=== PATIENT | male | born 1970 | race Caucasian/White ===

== ENCOUNTER 2017-10-26 17:49 | Emergency (ER) | payer OTHER, SELFPAY ==
--- NOTE | 2017-10-26 20:48 | ER ---
Nurse's Notes 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 Reports lightheadedness and feels disoriented. Alert and oriented x 3. Transition of care: patient was not received from another setting of care. Onset of symptoms was October 25, 2017. Risk Assessment: Do you want to hurt yourself or someone else? Patient reports no desire to harm self or others. Care prior to arrival: None. 17:53 Method Of Arrival: Ambulatory aj 17:53 Acuity: ALOK 3 aj Triage Assessment: 17:55 General: Appears in no apparent distress. comfortable, Behavior is calm, cooperative, aj appropriate for age. Pain: Complains of pain in chest. Neuro: Level of Consciousness is awake, alert, obeys commands, Oriented to person, place, time, situation, Appropriate for age. Cardiovascular: Reports chest pain, lightheadedness, Capillary refill < 3 seconds in bilateral. Respiratory: Airway is patent Respiratory effort is even, unlabored, Respiratory pattern is regular, symmetrical. GI: Reports diarrhea, nausea. Derm: Skin is intact, is healthy with good turgor, Skin is pink, warm \T\ dry. normal. Historical: - Allergies: 17:55 PENICILLINS; aj - Home Meds: 17:55 None [Active]; aj - PMHx: 17:55 None; aj - PSHx: 17:55 ankle; aj - Immunization history:: Adult Immunizations up to date. - Social history:: Smoking status: Patient/guardian denies using tobacco. - Ebola Screening: : Patient negative for fever greater than or equal to 101.5 degrees Fahrenheit, and additional compatible Ebola Virus Disease symptoms Patient denies exposure to infectious person Patient denies travel to an Ebola-affected area in the 21 days before illness onset No symptoms or risks identified at this time. Vital Signs: 17:55 BP 134 / 84; Pulse 87; Resp 18; Temp 98.1; Pulse Ox 98% on R/A; Weight 97.52 kg; Height aj 6 ft. 4 in. (193.04 cm); 17:55 Body Mass Index 26.17 (97.52 kg, 193.04 cm) aj ED Course: 17:51 Patient arrived in ED. aj 17:54 Triage completed. aj 17:55 Arm band placed on left wrist. Patient placed in an exam room. EKG completed in triage. aj Results shown to MD. 20:18 Patient's name was called from ER lobby. No response. aj 20:31 Patient's name was called from ER lobby. No response. aj 20:46 Patient's name was called from ER lobby. No response. aj 20:48 Castillo Suazo MD is Attending Physician. aj Administered Medications: No medications were administered Outcome: 20:47 Eloped from waiting room, before seeing physician aj 20:48 Patient left the ED. aj Signatures: Raven Vides, RN RN aj
[2017-10-26 21:56] VITALS: BP 134/84; TEMP 98.1; O2SAT 98
--- NOTE | 2017-10-26 22:37 | EKG ---
Test Date: 2017-10-26 Test Time: 17:54:03 Junior Financial Analyst: YAQUELIN MEASUREMENT RESULTS: Intervals: Rate: 85 DE: 140 QRSD: 84 QT: 376 QTc: 447 [place]: P: 62 DE: 140 QRS: 105 T: 51 INTERPRETIVE STATEMENTS: Normal sinus rhythm Rightward axis Borderline ECG Compared to ECG 11/26/2016 12:15:21 No significant changes Electronically Signed On 10-26-17 22:37:39 CDT by Nikhil Solitario
== END 2017-10-26 20:48 | disposition left against medical advice (07) ==
LOC: ER 17:49
DX: Z53.21 Procedure and treatment not carried out due to patient leaving prior to being seen by health care provider (principal)
CPT/HCPCS: 93005; 99281

== ENCOUNTER 2018-06-08 15:58 | Emergency (ER) | payer OTHER ==
[2018-06-08 16:32] LABS: Protime INR 1.12
[2018-06-08 16:48] LABS: ALT/SGPT 30 U/L (12-78); AST/SGOT 11 U/L (15-37); Alkaline Phosphatase 67 U/L (45-117); BUN Blood Urea Nitrogen 19 mg/dL (7-18); Bicarbonate 27 mmol/L (21-32); Bilirubin Direct 0.3 mg/dL (0-0.2); Bilirubin Total 1.8 mg/dL (0.2-1.0); Glucose Level 101 mg/dL (74-106); Magnesium 1.9 mg/dL (1.8-2.4); NT PRO-BNP 20 pg/mL (<125); Potassium 3.8 mmol/L (3.5-5.1); Protein, Total 7.3 g/dL (6.4-8.2); Sodium Level 138 mmol/L (136-145); Troponin (Emerg Dept Use Only) < 0.02 ng/mL (0.0-0.045)
--- NOTE | 2018-06-08 16:59 | RAD REPORT ---
EXAM DESCRIPTION: [place] Single View06/08/2018 4:41 pm CLINICAL HISTORY: Shortness of breath COMPARISON: 2017 FINDINGS: The lungs appear clear of acute infiltrate. The heart is normal size IMPRESSION: No acute abnormalities displayed
--- NOTE | 2018-06-08 18:46 | ER ---
Nurse's Notes [facility] Name: Matthew Lee Age: 47 yrs Sex: Male : 1970 Arrival Date: 06/08/2018 Time: 16:09 Bed 2 Private MD: Diagnosis: Palpitations Presentation: 06/08 16:10 Presenting complaint: Patient states: I was at work, just doing normal activity when I sg felt what i describe as electricity jolt my body then i became weak and short of breath. Presenting complaint: EMS states: pt was in SVT on the 12 lead with a rate of 230's, administered adenosinex2, pt converted to SR with a rate of 100, pt denied any pain or shortness of breath, reported having sinus pain and congestion but denied N/V/D. Transition of care: patient was not received from another setting of care. Onset of symptoms was June 08, 2018. Risk Assessment: Do you want to hurt yourself or someone else? Patient reports no desire to harm self or others. Initial Sepsis Screen: Does the patient meet any 2 criteria? No. Patient's initial sepsis screen is negative. Does the patient have a suspected source of infection? No. Patient's initial sepsis screen is negative. Care prior to arrival: Medication(s) given: Adenosine, 12 mg, x 2, IV initiated. 20 GA, in the right antecubital area, Oxygen administered. via nasal cannula. Care prior to arrival: Medication(s) given: Adenosine. 16:10 Method Of Arrival: EMS: [facility] sg 16:10 Acuity: ALOK 2 sg Historical: - Allergies: 16:40 PENICILLINS; sg - Home Meds: 16:40 None [Active]; sg - PMHx: 16:40 None; sg - PSHx: 16:40 ankle; sg - Immunization history:: Adult Immunizations up to date. - Social history:: Smoking status: Patient/guardian denies using tobacco. - Ebola Screening: : Patient negative for fever greater than or equal to 101.5 degrees Fahrenheit, and additional compatible Ebola Virus Disease symptoms Patient denies exposure to infectious person Patient denies travel to an Ebola-affected area in the 21 days before illness onset No symptoms or risks identified at this time. Screenin:50 Abuse screen: Denies threats or abuse. Denies injuries from another. Nutritional sg screening: No deficits noted. Tuberculosis screening: No symptoms or risk factors identified. Never had TB. Fall Risk None identified. Assessment: 16:40 General: Appears in no apparent distress. comfortable, well groomed, well developed, sg well nourished, Behavior is calm, cooperative, appropriate for age. Neuro: Level of Consciousness is awake, alert, obeys commands, Oriented to person, place, time, situation, Logging Superintendent are equal bilaterally Moves all extremities. Full function Speech is normal, Facial symmetry appears normal, Denies weakness blurred vision dizziness, difficulty swallowing, paresthesias numbness headache photophobia diplopia. Cardiovascular: Heart tones S1 S2 present Patient's skin is warm and dry. Chest pain is denied. Respiratory: Airway is patent Respiratory effort is even, unlabored, Respiratory pattern is regular, symmetrical, Breath sounds are clear. GI: No signs and/or symptoms were reported involving the gastrointestinal system. : No signs and/or symptoms were reported regarding the genitourinary system. EENT: No signs and/or symptoms were reported regarding the EENT system. Derm: Skin is pink, warm \T\ dry. Musculoskeletal: No signs and/or symptoms reported regarding the musculoskeletal system. 17:10 Reassessment: Patient appears in no apparent distress at this time. Patient and/or sg family updated on plan of care and expected duration. Pain level reassessed. Patient is alert, oriented x 3, equal unlabored respirations, skin warm/dry/pink. 18:20 Reassessment: Patient appears in no apparent distress at this time. Patient and/or sg family updated on plan of care and expected duration. Pain level reassessed. Patient is alert, oriented x 3, equal unlabored respirations, skin warm/dry/pink. awaiting update on POC, awaiting re evaluation by ED provider at this time. 19:05 Reassessment: Patient appears in no apparent distress at this time. Patient and/or ed1 family updated on plan of care and expected duration. Pain level reassessed. Patient is alert, oriented x 3, equal unlabored respirations, skin warm/dry/pink. Patient denies pain at this time. 19:22 Reassessment: Patient appears in no apparent distress at this time. Patient and/or ed1 family updated on plan of care and expected duration. Pain level reassessed. Patient is alert, oriented x 3, equal unlabored respirations, skin warm/dry/pink. Patient denies pain at this time. Patient states symptoms have improved. Vital Signs: 16:00 BP 131 / 81; Pulse 96; Resp 18 S; Temp 98.1; Pulse Ox 99% on R/A; sg 16:30 BP 108 / 65; Pulse 88; Resp 17 S; Pulse Ox 96% on R/A; sg 17:00 BP 111 / 69; Pulse 87; Resp 17; Pulse Ox 99% ; sg 18:45 BP 121 / 89; Pulse 76; Resp 17; Temp 98.0; Pulse Ox 100% on R/A; Pain 0/10; sg 19:07 BP 118 / 72; Pulse 69 MON; Resp 19; Pulse Ox 99% on R/A; lp1 19:22 BP 122 / 86; Pulse 68; Resp 16; Temp 97.5(O); Pulse Ox 99% on R/A; Pain 0/10; ed1 19:07 Sinus Rhythm lp1 [place] Coma Score: 17:00 Eye Response: spontaneous(4). Verbal Response: oriented(5). Motor Response: obeys sg commands(6). Total: 15. 18:45 Eye Response: spontaneous(4). Verbal Response: oriented(5). Motor Response: obeys sg commands(6). Total: 15. ED Course: 16:09 Patient arrived in ED. sg 16:14 Triage completed. sg 16:16 EKG done, by mining technician. dt2 16:30 Jones Watt, STIVEN is Primary Nurse. sg 16:34 Lawrence Hernandez MD is Attending Physician. kdr 16:40 Patient has correct armband on for positive identification. Bed in low position. Call sg light in reach. Side rails up X2. desk monitor on. Pulse ox on. NIBP on. Warm blanket given. Verbal reassurance given. Head of bed elevated. 16:42 XRAY Chest (1 view) In Process Unspecified. EDMS 19:05 Maintain EMS IV. Dressing intact. Good blood return noted. Site clean \T\ dry. Gauge \T\ ed 1 site: 18g right a/c. Flushed right antecubital saline lock. 19:08 No provider procedures requiring assistance completed. Patient maintains SpO2 lp1 saturation greater than 95% on room air. 19:08 Arm band placed on. lp1 19:22 IV discontinued, intact, bleeding controlled, No redness/swelling at site. Pressure ed1 dressing applied. Administered Medications: 18:59 Drug: Lopressor 25 mg Route: PO; sg 19:09 Follow up: Response: No adverse reaction; Marked relief of symptoms lp1 Outcome: 18:45 Discharge ordered by . kdr 19:22 Discharged to home ambulatory, with significant other. ed1 19:22 Condition: good 19:22 Discharge instructions given to patient, Instructed on discharge instructions, follow up and referral plans. medication usage, Demonstrated understanding of instructions, follow-up care, medications, Prescriptions given X 1. 19:24 Patient left the ED. ed1 Signatures: Dispatcher [employer] EDMS Jones Watt RN RN Lawrence Hernandez MD MD kdr Riggs, Erika, RN RN ed1 Jamee Gary RN RN lp1 Tamera Urena dt2
--- NOTE | 2018-06-08 18:47 | EDPHYS ---
Physician Documentation [facility] Name: Matthew Lee Age: 47 yrs Sex: Male : 1970 Arrival Date: 06/08/2018 Time: 16:09 Bed 2 Private MD: ED Physician Lawrence Hernandez Historical: - Allergies: 06/08 16:40 PENICILLINS; sg - Home Meds: 16:40 None [Active]; sg - PMHx: 16:40 None; sg - PSHx: 16:40 ankle; sg - Immunization history:: Adult Immunizations up to date. - Social history:: Smoking status: Patient/guardian denies using tobacco. - Ebola Screening: : Patient negative for fever greater than or equal to 101.5 degrees Fahrenheit, and additional compatible Ebola Virus Disease symptoms Patient denies exposure to infectious person Patient denies travel to an Ebola-affected area in the 21 days before illness onset No symptoms or risks identified at this time. Vital Signs: 16:00 BP 131 / 81; Pulse 96; Resp 18 S; Temp 98.1; Pulse Ox 99% on R/A; sg 16:30 BP 108 / 65; Pulse 88; Resp 17 S; Pulse Ox 96% on R/A; sg 17:00 BP 111 / 69; Pulse 87; Resp 17; Pulse Ox 99% ; sg 18:45 BP 121 / 89; Pulse 76; Resp 17; Temp 98.0; Pulse Ox 100% on R/A; Pain 0/10; sg 19:07 BP 118 / 72; Pulse 69 MON; Resp 19; Pulse Ox 99% on R/A; lp1 19:22 BP 122 / 86; Pulse 68; Resp 16; Temp 97.5(O); Pulse Ox 99% on R/A; Pain 0/10; ed1 19:07 Sinus Rhythm lp1 [place] Coma Score: 17:00 Eye Response: spontaneous(4). Verbal Response: oriented(5). Motor Response: obeys sg commands(6). Total: 15. 18:45 Eye Response: spontaneous(4). Verbal Response: oriented(5). Motor Response: obeys sg commands(6). Total: 15. MDM: 18:45 Patient medically screened. kdr 06/08 16:10 Order name: Basic Metabolic Panel; Complete Time: 18:33 sg 06/08 16:10 Order name: CBC with Diff 06/08 16:10 Order name: LFT's; Complete Time: 18:33 06/08 16:10 Order name: Magnesium; Complete Time: 18:33 06/08 16:10 Order name: NT PRO-BNP; Complete Time: 18:33 06/08 16:10 Order name: PT-INR; Complete Time: 18:33 06/08 16:10 Order name: Troponin (emerg Dept Use Only); Complete Time: 18:33 06/08 16:10 Order name: XRAY Chest (1 view); Complete Time: 18:33 06/08 16:10 Order name: EKG; Complete Time: 16:11 06/08 16:10 Order name: Cardiac monitoring; Complete Time: 18:33 06/08 16:10 Order name: EKG - Nurse/Tech; Complete Time: 18:33 06/08 16:10 Order name: IV Saline Lock; Complete Time: 18:33 06/08 16:10 Order name: Labs collected and sent; Complete Time: 18:34 06/08 16:10 Order name: O2 Per Protocol; Complete Time: 18:34 06/08 16:10 Order name: O2 Sat Monitoring; Complete Time: 18:34 Administered Medications: 18:59 Drug: Lopressor 25 mg Route: PO; sg 19:09 Follow up: Response: No adverse reaction; Marked relief of symptoms lp1 Disposition: 06/08/18 18:45 Discharged to Home. Impression: Palpitations. - Condition is Stable. - Discharge Instructions: Palpitations, [id number]. - Medication Reconciliation Form, Thank You Letter form. - Follow up: Private Physician; When: 2 - 3 days; Reason: If symptoms return, Further diagnostic work-up, Recheck today's complaints, Continuance of care, Re-evaluation by your physician. - Problem is an acute exacerbation. - Symptoms have improved. Signatures: Dispatcher [employer] EDMS Jones Watt, RN RN Lawrence Hernandez MD MD [facility] Meera Boston RN RN ed1 Jamee Gary RN lp1 Corrections: (The following items were deleted from the chart) 19:24 18:45 06/08/2018 18:45 Discharged to Home. Impression: Palpitations. Condition is ed1 Stable. Forms are Medication Reconciliation Form, Thank You Letter, Antibiotic Education, Prescription Opioid Use. Follow up: Private Physician; When: 2 - 3 days; Reason: If symptoms return, Further diagnostic work-up, Recheck today's complaints, Continuance of care, Re-evaluation by your physician. Problem is an acute exacerbation. Symptoms have improved. kdr
[2018-06-08] MEDS ORDERED: METOPROLOL TAR 25 MG TAB ONE (19:03)
[2018-06-08 19:51] VITALS: O2SAT 99
[2018-06-08 19:52] VITALS: BP 122/86; TEMP 97.5
--- NOTE | 2018-06-09 14:03 | EKG ---
Test Date: 2018-06-08 Test Time: 16:07:50 Tumbler Machine Operator Helper: MARGARET MEASUREMENT RESULTS: Intervals: Rate: 89 TN: 154 QRSD: 82 QT: 362 QTc: 440 [place]: P: 66 TN: 154 QRS: 105 T: 61 INTERPRETIVE STATEMENTS: Normal sinus rhythm Rightward axis Borderline ECG Compared to ECG 10/26/2017 17:54:03 No significant changes Electronically Signed On 06-09-18 13:59:04 FRENCH LECTURER by Naman Faustin
== END 2018-06-08 19:24 | disposition home or self-care (01) ==
LOC: ER 15:58
DX: R06.02 Shortness of breath (principal); R00.2 Palpitations; Z88.0 Allergy status to penicillin
CPT/HCPCS: 36415; 71045; 80048; 80076; 83735; 83880; 84484; 85025; 85610; 93005

== ENCOUNTER 2019-03-06 11:44 | Emergency (ER) | payer OTHER ==
--- NOTE | 2019-03-06 12:10 | EKG ---
Test Date: 2019-03-06 Test Time: 11:49:32 Manager Corporate Strategy: EPI MEASUREMENT RESULTS: Intervals: Rate: 92 TX: 148 QRSD: 84 QT: 344 QTc: 425 [place]: P: 69 TX: 148 QRS: 112 T: 58 INTERPRETIVE STATEMENTS: Normal sinus rhythm Right axis deviation Abnormal ECG Compared to ECG 06/08/2018 16:07:50 No significant changes Electronically Signed On 03-06-19 12:09:56 CDT by Naman Faustin
[2019-03-06 12:23] LABS: Absolute Lymphocytes (CBC) 1.1 K/uL (0.7-4.9); Basophils % 0.4 % (0-1.3); Hematocrit 45.2 % (39.6-49.0); MPV 7.4 fL (7.6-11.3); RBC Red Blood Cell Count 5.39 M/uL (4.33-5.43)
--- NOTE | 2019-03-06 12:32 | RAD REPORT ---
EXAM DESCRIPTION: RAD - Chest Single View - 03/06/2019 12:25 pm CLINICAL HISTORY: PALPITATIONS Chest pain. COMPARISON: Chest Single View dated 06/08/2018; Chest Single View dated 11/26/2016; CHEST SINGLE VIEW d ated 05/17/2015; CHEST SINGLE VIEW dated 06/21/2012 FINDINGS: Portable technique limits examination quality. The lungs are grossly clear. The heart is normal in size. No displaced fractures. IMPRESSION: No acute intrathoracic process suspected.
[2019-03-06] MEDS ORDERED: NA CHLORIDE 0.9% 1,000 ML ONE (12:34)
[2019-03-06 12:45] LABS: ALT/SGPT 36 U/L (12-78); AST/SGOT 14 U/L (15-37); Albumin 3.9 g/dL (3.4-5.0); Alkaline Phosphatase 73 U/L (45-117); BUN Blood Urea Nitrogen 17 mg/dL (7-18); Bicarbonate 27 mmol/L (21-32); Bilirubin Direct 0.3 mg/dL (0-0.2); Glucose Level 121 mg/dL (74-106); Magnesium 2.1 mg/dL (1.8-2.4); NT PRO-BNP 37 pg/mL (<125); Potassium 3.9 mmol/L (3.5-5.1); Protein, Total 7.4 g/dL (6.4-8.2); Sodium Level 138 mmol/L (136-145); Troponin (Emerg Dept Use Only) < 0.02 ng/mL (0.0-0.045)
--- NOTE | 2019-03-06 14:03 | EDPHYS ---
Physician Documentation [facility] Name: Matthew Lee Age: 48 yrs Sex: Male : 1970 Arrival Date: 03/06/2019 Time: 11:46 Bed 24 Private MD: ED Physician Jas Barajas HPI: 03/06 12:25 This 48 yrs old Male presents to ER via Ambulatory with complaints of jmm Irregular Pulse. 12:25 The patient presents with a history of heart racing. Onset: The symptoms/episode jmm began/occurred acutely, just prior to arrival. Duration: The patient or guardian reports a single episode. Modifying factors: The symptoms are aggravated by nothing. The symptoms are alleviated by Valsalva maneuver, of. Associated signs and symptoms: Pertinent negatives: chest pain. This is a 48 year old male with a history of SVT that presents to the ED with complaints of pain to his left bicep beginning just prior to arrival. Patient states he then developed palpitations. Patient states his pulse was in the 150's using a phone misha. Patient then performed vagal maneuvers. Patient states he currently at baseline but at the time of the event felt very weak. . Historical: - Allergies: 11:52 PENICILLINS; tw2 11:52 Codeine; tw2 - Home Meds: 11:52 None [Active]; tw2 - PMHx: 11:52 SVT; tw2 - PSHx: 11:52 ankle, left; tw2 - Immunization history:: Adult Immunizations. - Social history:: Smoking status: . - Ebola Screening: : Patient denies travel to an Ebola-affected area in the 21 days before illness onset. ROS: 12:25 Constitutional: Negative for fever, chills, and weight loss, Eyes: Negative for injury, jmm pain, redness, and discharge, ENT: Negative for injury, pain, and discharge, Neck: Negative for injury, pain, and swelling. 12:25 Cardiovascular: Positive for palpitations. 12:25 Neuro: Positive for near syncope. 12:25 All other systems are negative. Exam: 12:25 Constitutional: This is a well developed, well nourished patient who is awake, alert, jmm and in no acute distress. Head/Face: atraumatic. Eyes: EOMI, no conjunctival erythema appreciated ENT: Moist Mucus Membranes Neck: Trachea midline, Supple Chest/axilla: Normal chest wall appearance and motion. 12:25 Cardiovascular: Rate: normal, Rhythm: regular, Pulses: no pulse deficits are appreciated. 12:25 Respiratory: the patient does not display signs of respiratory distress, Respirations: normal, Breath sounds: are clear throughout. 12:25 Abdomen/GI: Inspection: abdomen appears normal, Bowel sounds: normal, Palpation: abdomen is soft and non-tender, in all quadrants. 12:25 Back: ROM is normal. 12:25 Musculoskeletal/extremity: ROM: intact in all extremities. 12:25 Skin: Appearance: Color: normal in color. 12:25 Neuro: Orientation: is normal, Mentation: is normal, Memory: is normal. 12:25 Psych: Behavior/mood is pleasant, cooperative. Vital Signs: 11:50 BP 132 / 90; Pulse 88; Resp 18; Temp 98.2(O); Pulse Ox 95% on R/A; Weight 92.99 kg (R); tw2 Height 6 ft. 4 in. (193.04 cm); Pain 5/10; 12:05 BP 127 / 73 LA Sitting (auto/reg); Pulse 85; Resp 13; Pulse Ox 96% on R/A; Pain 0/10; jp3 13:06 BP 112 / 69; Pulse 93; Resp 14 S; Pulse Ox 100% on R/A; ca1 13:41 BP 109 / 61; Pulse 68; Resp 17 S; Pulse Ox 99% on R/A; ca1 14:12 BP 114 / 68; Pulse 80; Resp 17; Pulse Ox 98% on R/A; ca1 11:50 Body Mass Index 24.95 (92.99 kg, 193.04 cm) tw2 MDM: 11:58 Patient medically screened. lyndon 14:00 Data reviewed: vital signs, nurses notes. Counseling: I had a detailed discussion with markos the patient and/or guardian regarding: the historical points, exam findings, and any diagnostic results supporting the discharge/admit diagnosis, lab results, radiology results, the need for outpatient follow up, to return to the emergency department if symptoms worsen or persist or if there are any questions or concerns that arise at home. ED course: Patient is alert and non toxic in appearance. Symptoms have resolved in the ED. Patient is advised to follow up with his is analyst and otherwise given strict return precautions. Patient understood and agrees with the plan of care. . 03/06 11:55 Order name: Basic Metabolic Panel; Complete Time: 13:23 [facility] 03/06 11:55 Order name: CBC with Diff; Complete Time: 12:28 [facility] 03/06 11:55 Order name: LFT's; Complete Time: 13:23 [facility] 03/06 11:55 Order name: Magnesium; Complete Time: 13:23 [facility] 03/06 11:55 Order name: NT PRO-BNP; Complete Time: 13:23 [facility] 03/06 11:55 Order name: PT-INR; Complete Time: 12:41 [facility] 03/06 11:55 Order name: Troponin (emerg Dept Use Only); Complete Time: 13:23 [facility] 03/06 11:55 Order name: XRAY Chest (1 view); Complete Time: 12:35 [facility] 03/06 11:55 Order name: EKG; Complete Time: 11:56 [facility] 03/06 11:55 Order name: Cardiac monitoring; Complete Time: 12:07 [facility] 03/06 11:55 Order name: EKG - Nurse/Tech; Complete Time: 12:07 [facility] 03/06 11:55 Order name: IV Saline Lock; Complete Time: 12:12 [facility] 03/06 11:55 Order name: Labs collected and sent; Complete Time: 12:12 [facility] 03/06 11:55 Order name: O2 Per Protocol; Complete Time: 12:07 [facility] 03/06 11:55 Order name: O2 Sat Monitoring; Complete Time: 12:07 [facility] Administered Medications: 12:36 Drug: NS 0.9% 1000 ml Route: IV; Rate: 1 bolus; Site: right antecubital; ca1 13:40 Follow up: Urine output 110 ml; Response: No adverse reaction; IV Status: Completed ca1 infusion; IV Intake: 1000ml Disposition: 19:59 Co-signature as Attending Physician, Jas Barajas MD I agree with the assessment and tw4 plan of care. Disposition: 03/06/19 14:02 Discharged to Home. Impression: Palpitations. - Condition is Stable. - Discharge Instructions: Palpitations. - Medication Reconciliation Form, Thank You Letter, Antibiotic Education, Prescription Opioid Use, Work release form form. - Follow up: Private Physician; When: 1 - 2 days; Reason: Recheck today's complaints, Continuance of care, Re-evaluation by your physician. Signatures: Dispatcher [employer] EDElver Odom MD MD cha Mickail, Joel, PA PA jmm Wise, Tara, RN RN tw2 Jas Barajas MD MD tw4 Amanda Del Rosario RN RN ca1 Corrections: (The following items were deleted from the chart) 14:15 14:02 03/06/2019 14:02 Discharged to Home. Impression: Palpitations. Condition is ca1 Stable. Forms are Medication Reconciliation Form, Thank You Letter, Antibiotic Education, Prescription Opioid Use. Follow up: Private Physician; When: 1 - 2 days; Reason: Recheck today's complaints, Continuance of care, Re-evaluation by your physician. markos
--- NOTE | 2019-03-06 14:03 | ER ---
Nurse's Notes [facility] Name: Matthew Lee Age: 48 yrs Sex: Male : 1970 Arrival Date: 03/06/2019 Time: 11:46 Bed 24 Private MD: Diagnosis: Palpitations Presentation: 03/06 11:48 Presenting complaint: Patient states: about an hour ago, i had an episode of this sharp tw2 pain in my LEFT arm and got lightheaded and felt my heart rate increase, i was recently diagnosed in Jun with SVT. Transition of care: patient was not received from another setting of care. Onset of symptoms was March 06, 2019. Risk Assessment: Do you want to hurt yourself or someone else? Patient reports no desire to harm self or others. Initial Sepsis Screen: Does the patient meet any 2 criteria? No. Patient's initial sepsis screen is negative. Does the patient have a suspected source of infection? No. Patient's initial sepsis screen is negative. Care prior to arrival: None. 11:48 Method Of Arrival: Ambulatory tw2 11:48 Acuity: ALOK 3 tw2 Triage Assessment: 11:50 General: Appears in no apparent distress. Behavior is anxious. Pain: Complains of pain tw2 in left arm. Cardiovascular: Reports palpitations, Denies chest pain, shortness of breath. Historical: - Allergies: 11:52 PENICILLINS; tw2 11:52 Codeine; tw2 - Home Meds: 11:52 None [Active]; tw2 - PMHx: 11:52 SVT; tw2 - PSHx: 11:52 ankle, left; tw2 - Immunization history:: Adult Immunizations. - Social history:: Smoking status: . - Ebola Screening: : Patient denies travel to an Ebola-affected area in the 21 days before illness onset. Screenin:14 Abuse screen: Denies threats or abuse. Denies injuries from another. Nutritional ca1 screening: No deficits noted. Tuberculosis screening: No symptoms or risk factors identified. Fall Risk IV access (20 points). Assessment: 12:14 General: Appears in no apparent distress. comfortable, Behavior is calm, cooperative, ca1 appropriate for age. Pain: Complains of pain in left arm Pain does not radiate. Pain currently is 0 out of 10 on a pain scale. at worst was 6 out of 10 on a pain scale. Quality of pain is described as crampy, Pain began 1 hour ago. Is episodic. Neuro: Level of Consciousness is awake, alert, obeys commands, Oriented to person, place, time, situation. Cardiovascular: Reports lightheadedness, since an hour ago during the left arm pain episode but has now been resolved Heart tones S1 S2 present Capillary refill < 3 seconds Patient's skin is warm and dry. Pulses are all present. Rhythm is sinus rhythm. Respiratory: Airway is patent Respiratory effort is even, unlabored, Respiratory pattern is regular, symmetrical, Breath sounds are clear bilaterally. GI: Abdomen is flat, non-distended, Bowel sounds present X 4 quads. Abd is soft and non tender X 4 quads. Patient currently denies nausea, vomiting. : No deficits noted. No signs and/or symptoms were reported regarding the genitourinary system. EENT: No deficits noted. No signs and/or symptoms were reported regarding the EENT system. Derm: Skin is intact, is healthy with good turgor, Skin is pink, warm \T\ dry. Musculoskeletal: Circulation, motion, and sensation intact. Capillary refill < 3 seconds, Range of motion: intact in all extremities. 13:06 Reassessment: Patient appears in no apparent distress at this time. Patient and/or ca1 family updated on plan of care and expected duration. Pain level reassessed. Patient is alert, oriented x 3, equal unlabored respirations, skin warm/dry/pink. 13:41 Reassessment: Patient appears in no apparent distress at this time. Patient is alert, ca1 oriented x 3, equal unlabored respirations, skin warm/dry/pink. 14:12 Reassessment: Patient appears in no apparent distress at this time. Patient is alert, ca1 oriented x 3, equal unlabored respirations, skin warm/dry/pink. Vital Signs: 11:50 BP 132 / 90; Pulse 88; Resp 18; Temp 98.2(O); Pulse Ox 95% on R/A; Weight 92.99 kg (R); tw2 Height 6 ft. 4 in. (193.04 cm); Pain 5/10; 12:05 BP 127 / 73 LA Sitting (auto/reg); Pulse 85; Resp 13; Pulse Ox 96% on R/A; Pain 0/10; jp3 13:06 BP 112 / 69; Pulse 93; Resp 14 S; Pulse Ox 100% on R/A; ca1 13:41 BP 109 / 61; Pulse 68; Resp 17 S; Pulse Ox 99% on R/A; ca1 14:12 BP 114 / 68; Pulse 80; Resp 17; Pulse Ox 98% on R/A; ca1 11:50 Body Mass Index 24.95 (92.99 kg, 193.04 cm) tw2 ED Course: 11:46 Patient arrived in ED. as 11:50 Triage completed. tw2 11:50 Arm band placed on. EKG completed in triage. Results shown to MD. tw2 11:50 EKG done, by ecological technical officer. reviewed by Kedar WALKER. jp3 11:52 Amanda Del Rosario, RN is Primary Nurse. ca1 11:54 Kedar Riggs PA is PHCP. jmm 11:55 Elver Lainez MD is Attending Physician. jmm 12:03 Patient maintains SpO2 saturation greater than 95% on room air. jp3 12:04 Bed in low position. Call light in reach. Side rails up X 1. Verbal reassurance given. jp3 conveyor monitor on. Pulse ox on. NIBP on. 12:07 XRAY Chest (1 view) Sent. jp3 12:13 No provider procedures requiring assistance completed. Initial lab(s) drawn, by me, ca1 sent to lab. Inserted saline lock: 20 gauge in right antecubital area, using aseptic technique. Blood collected. 12:26 XRAY Chest (1 view) In Process Unspecified. EDMS 13:42 Jas Barajas MD is Attending Physician. jmm 14:13 IV discontinued, intact, bleeding controlled, No redness/swelling at site. Pressure ca1 dressing applied. Administered Medications: 12:36 Drug: NS 0.9% 1000 ml Route: IV; Rate: 1 bolus; Site: right antecubital; ca1 13:40 Follow up: Urine output 110 ml; Response: No adverse reaction; IV Status: Completed ca1 infusion; IV Intake: 1000ml Intake: 13:40 IV: 1000ml; Total: 1000ml. ca1 Output: 13:40 Urine: 110ml; Total: 110ml. ca1 Outcome: 14:02 Discharge ordered by . jmm 14:13 Discharged to home ambulatory. ca1 14:13 Condition: stable 14:13 Discharge instructions given to patient, Instructed on discharge instructions, follow up and referral plans. Demonstrated understanding of instructions, follow-up care. 14:15 Patient left the ED. ca1 Signatures: Dispatcher [employer] EDKedar Guzman PA PA jmm Martinez, Amelia as Wise, Tara, RN RN tw2 Evan Deluca jp3 Amanda Del Rosario, RN RN ca1
[2019-03-06 14:55] VITALS: TEMP 98.2
[2019-03-06 15:00] VITALS: BP 114/68; O2SAT 98
== END 2019-03-06 14:15 | disposition home or self-care (01) ==
LOC: ER 11:44
DX: R00.2 Palpitations (principal); R55 Syncope and collapse; Z88.0 Allergy status to penicillin; Z88.5 Allergy status to narcotic agent
CPT/HCPCS: 93005; 85025; 80048; 36415; 83735; 85610; 80076; 84484; 83880; 71045; 96360; 99285; J7030

== ENCOUNTER 2019-08-26 13:13 | Emergency (ER) | payer OTHER ==
[2019-08-26 14:06] LABS: Absolute Lymphocytes (CBC) 1.1 K/uL (0.7-4.9); Basophils % 0.9 % (0-1.3); Hematocrit 48.7 % (39.6-49.0); Lymphocytes % 19.3 % (15.3-44.8); MPV 7.8 fL (7.6-11.3); RBC Red Blood Cell Count 5.83 M/uL (4.33-5.43)
[2019-08-26 14:19] LABS: BUN Blood Urea Nitrogen 16 mg/dL (7-18); Bicarbonate 29 mmol/L (21-32); Glucose Level 113 mg/dL (74-106); Magnesium 2.2 mg/dL (1.8-2.4); NT PRO-BNP 25 pg/mL (<125); Potassium 3.8 mmol/L (3.5-5.1); Sodium Level 138 mmol/L (136-145); Troponin (Emerg Dept Use Only) < 0.02 ng/mL (0.0-0.045)
--- NOTE | 2019-08-26 15:28 | EDPHYS ---
Physician Documentation [facility] Name: Matthew Lee Age: 48 yrs Sex: Male : 1970 Arrival Date: 08/26/2019 Time: 13:16 Bed 2 Private MD: Young Martinez T ED Physician Castillo Suazo HPI: 08/25 14:26 This 48 yrs old Male presents to ER via Wheelchair with complaints of rn Irregular Pulse. 14:26 The patient presents with a history of irregular heart beat, heart racing. Onset: The rn symptoms/episode began/occurred last night. Duration: The patient or guardian reports multiple episodes, approximately 2 episodes since symptom onset. Modifying factors: The symptoms are aggravated by nothing. The symptoms are alleviated by nothing. Severity of symptoms: At their worst the symptoms were moderate in the emergency department the symptoms have improved. The patient has experienced similar episodes in the past. Reports hx of svt, began again last night with elevated HR, 150s/160s, got better but couldn't get under 100, no chest pain/sob/syncope. Happened again this AM and resolved once again. Taken of metoprolol a while back because had not had an episode in months and didn't tolerate metoprolol well. Currently feels better but told to come get checked out. . Historical: - Allergies: 13:33 Codeine; iw 13:33 PENICILLINS; iw - Home Meds: 13:33 Dicyclomine Oral [Active]; iw - PMHx: 13:33 SVT; IBS; iw - PSHx: 13:33 left ankle; iw - Immunization history:: Adult Immunizations not up to date. - Social history:: Smoking status: Patient/guardian denies using tobacco, the patient reports quitting approximately 5 years ago. - Family history:: not pertinent. - Hospitalizations: : No recent hospitalization is reported. ROS: 14:26 Constitutional: Negative for fever, chills, and weight loss, Eyes: Negative for injury, rn pain, redness, and discharge, Neck: Negative for injury, pain, and swelling, Cardiovascular: Negative for chest pain, and edema, Respiratory: Negative for shortness of breath, cough, wheezing, and pleuritic chest pain, Abdomen/GI: Negative for abdominal pain, nausea, vomiting, diarrhea, and constipation, MS/Extremity: Negative for injury and deformity, Skin: Negative for injury, rash, and discoloration, Neuro: Negative for headache, weakness, numbness, tingling, and seizure. Exam: 14:26 Constitutional: This is a well developed, well nourished patient who is awake, alert, rn and in no acute distress. Ambulatory to room without distress or assistance. Head/Face: Normocephalic, atraumatic. Cardiovascular: Regular rate and rhythm. No pulse deficits. Respiratory: No increased work of breathing, no retractions or nasal flaring. Abdomen/GI: soft, non-tender Skin: Warm, dry MS/ Extremity: Pulses equal, no cyanosis. Neurovascular intact. Full, normal range of motion. Equal circumference. Neuro: Awake and alert, GCS 15, oriented to person, place, time, and situation. Cranial nerves II-XII grossly intact. Motor strength 5/5 in all extremities. Sensory grossly intact. Cerebellar exam normal. Normal gait. 14:49 ECG was reviewed by the Attending Physician. rn Vital Signs: 13:28 BP 131 / 87; Pulse 92; Resp 16; Pulse Ox 98% on R/A; Weight 97.52 kg; Height 6 ft. 4 iw in. (193.04 cm); Pain 0/10; 13:54 BP 121 / 87; Pulse 80; Resp 16 S; Pulse Ox 96% on R/A; Pain 0/10; jl7 15:11 BP 105 / 72; Pulse 78; Resp 15 S; Pulse Ox 96% on R/A; jl7 13:28 Body Mass Index 26.17 (97.52 kg, 193.04 cm) iw MDM: 13:20 Patient medically screened. rn 14:51 Differential diagnosis: arrythmia, dehydration, stress disorder. Data reviewed: vital rn signs, nurses notes, lab test result(s), EKG, radiologic studies, plain films, and as a result, I will discharge patient. Test interpretation: by ED physician or midlevel provider: ECG, plain radiologic studies, CXR neg for acute infiltrate. Counseling: I had a detailed discussion with the patient and/or guardian regarding: the historical points, exam findings, and any diagnostic results supporting the discharge/admit diagnosis, lab results, radiology results, the need for outpatient follow up, to return to the emergency department if symptoms worsen or persist or if there are any questions or concerns that arise at home. Response to treatment: the patient's condition has returned to base line, the patient is now symptom free, and as a result, I will discharge patient. Special discussion: I discussed with the patient/guardian in detail that at this point there is no indication for admission to the hospital. It is understood, however, that if the symptoms persist or worsen the patient needs to return immediately for re-evaluation. Based on the history and exam findings, there is no indication for further emergent testing or inpatient evaluation. I discussed with the patient/guardian the need to see the color mixer for further evaluation of the symptoms. ED course: Consulted with Dr. Faustin, states ok to f/u in his clinic tomorrow morning. . 08/25 13:50 Order name: Basic Metabolic Panel; Complete Time: 14:22 rn 08/25 13:50 Order name: CBC with Diff; Complete Time: 14:08/25 13:50 Order name: Magnesium; Complete Time: 14:08/25 13:50 Order name: NT PRO-BNP; Complete Time: 14:08/25 13:50 Order name: Troponin (emerg Dept Use Only); Complete Time: 14:08/25 13:50 Order name: XRAY Chest (1 view); Complete Time: 15:59 rn 08/25 13:50 Order name: EKG; Complete Time: 13:50 08/25 13:50 Order name: Cardiac monitoring; Complete Time: 13:53 rn 08/25 13:50 Order name: EKG - Nurse/Tech; Complete Time: 13:53 rn 08/25 13:50 Order name: IV Saline Lock; Complete Time: 13:54 08/25 13:50 Order name: Labs collected and sent; Complete Time: 13:54 rn 08/25 13:50 Order name: O2 Per Protocol; Complete Time: 15:11 08/25 13:50 Order name: O2 Sat Monitoring; Complete Time: 15:11 rn EC:49 Rate is 80 beats/min. Rhythm is regular. WV interval is normal. QRS interval is normal. rn QT interval is normal. No Q waves. T waves are Normal. No ST changes noted. Clinical impression: NSR w/ Non-specific ST/T Changes. Interpreted by me. Reviewed by me. Administered Medications: No medications were administered Disposition: 08/26/19 15:27 Discharged to Home. Impression: Supraventricular tachycardia. - Condition is Stable. - Discharge Instructions: Paroxysmal Supraventricular Tachycardia. - Medication Reconciliation Form, Thank You Letter, Antibiotic Education, Prescription Opioid Use form. - Follow up: Naman Faustin; When: Tomorrow; Reason: Recheck today's complaints, Re-evaluation by your physician. - Problem is new. - Symptoms are resolved. Signatures: Dispatcher [employer] EDStacy Haynes RN RN iw Castillo Suazo MD MD harness rigger: (The following items were deleted from the chart) 16:01 15:27 08/26/2019 15:27 Discharged to Home. Impression: Supraventricular tachycardia. iw Condition is Stable. Discharge Instructions: Paroxysmal Supraventricular Tachycardia. Forms are Medication Reconciliation Form, Thank You Letter, Antibiotic Education, Prescription Opioid Use. Follow up: Naman Faustin; When: Tomorrow; Reason: Recheck today's complaints, Re-evaluation by your physician. Problem is new. Symptoms are resolved. rn
--- NOTE | 2019-08-26 15:28 | ER ---
Nurse's Notes [facility] Name: Matthew Lee Age: 48 yrs Sex: Male : 1970 Arrival Date: 08/26/2019 Time: 13:16 Bed 2 Private MD: Young Martinez T Diagnosis: Supraventricular tachycardia Presentation: 08/25 13:28 Chief complaint: Patient states: has hx of SVT, last night started feeling bad, felt iw dizzy, felt like he was going to fall out, HR was 158, did his vagal maneuvers, today his HR was still into the 110's. Denies chest pain or dizziness, was taken off metoprolol in December by Dr. Faustin because it was "wiping him out", has not had an episode of tachycardia in over 5 months. Coronavirus screen: Proceed with normal triage. Ebola Screen: Patient negative for fever greater than or equal to 101.5 degrees Fahrenheit, and additional compatible Ebola Virus Disease symptoms Patient denies exposure to infectious person. Patient denies travel to an Ebola-affected area in the 21 days before illness onset. No symptoms or risks identified at this time. Initial Sepsis Screen: Does the patient meet any 2 criteria? No. Patient's initial sepsis screen is negative. Does the patient have a suspected source of infection? No. Patient's initial sepsis screen is negative. Risk Assessment: Do you want to hurt yourself or someone else? Patient reports no desire to harm self or others. Onset of symptoms was August 25, 2019. 13:28 Method Of Arrival: Wheelchair iw 13:28 Acuity: ALOK 3 iw Historical: - Allergies: 13:33 Codeine; iw 13:33 PENICILLINS; iw - Home Meds: 13:33 Dicyclomine Oral [Active]; iw - PMHx: 13:33 SVT; IBS; iw - PSHx: 13:33 left ankle; iw - Immunization history:: Adult Immunizations not up to date. - Social history:: Smoking status: Patient/guardian denies using tobacco, the patient reports quitting approximately 5 years ago. - Family history:: not pertinent. - Hospitalizations: : No recent hospitalization is reported. Screenin:54 Abuse screen: Denies threats or abuse. Denies injuries from another. Nutritional jl7 screening: No deficits noted. Tuberculosis screening: No symptoms or risk factors identified. Fall Risk IV access (20 points). Total Garcia Fall Scale indicates No Risk (0-24 pts). Assessment: 13:20 General: Appears in no apparent distress. comfortable, Behavior is calm, cooperative, jl7 appropriate for age. Pain: Denies pain. Pain does not radiate. Pain began suddenly. Neuro: Level of Consciousness is awake, alert, obeys commands, Oriented to person, place, time, situation. Cardiovascular: Patient's skin is warm and dry. Respiratory: Airway is patent Respiratory effort is even, unlabored, Respiratory pattern is regular, symmetrical. Derm: Skin is pink, warm \\T\\ dry. 14:30 Reassessment: Patient appears in no apparent distress at this time. No changes from jl7 previously documented assessment. Patient and/or family updated on plan of care and expected duration. Pain level reassessed. Patient is alert, oriented x 3, equal unlabored respirations, skin warm/dry/pink. Vital Signs: 13:28 BP 131 / 87; Pulse 92; Resp 16; Pulse Ox 98% on R/A; Weight 97.52 kg; Height 6 ft. 4 iw in. (193.04 cm); Pain 0/10; 13:54 BP 121 / 87; Pulse 80; Resp 16 S; Pulse Ox 96% on R/A; Pain 0/10; jl7 15:11 BP 105 / 72; Pulse 78; Resp 15 S; Pulse Ox 96% on R/A; jl7 13:28 Body Mass Index 26.17 (97.52 kg, 193.04 cm) iw ED Course: 13:16 Patient arrived in ED. ag5 13:16 Young Martinez MD is Private Physician. ag5 13:19 Castillo Suazo MD is Attending Physician. rn 13:21 Marine Juarez RN is Primary Nurse. jl7 13:32 Triage completed. iw 13:33 Arm band placed on. iw 13:54 Patient has correct armband on for positive identification. Bed in low position. Call mona light in reach. Side rails up X 1. child monitor on. Pulse ox on. NIBP on. 13:54 Initial lab(s) drawn, by me, sent to lab. EKG done, by ED staff, reviewed by Castillo Suazo MD. Inserted saline lock: 20 gauge in right antecubital area, using aseptic technique. Blood collected. Patient maintains SpO2 saturation greater than 95% on room air. 14:52 XRAY Chest (1 view) In Process Unspecified. EDMS 15:27 Naman Faustin MD is Referral Physician. rn Administered Medications: No medications were administered Outcome: : Discharge ordered by . rn 16:01 Patient left the ED. iw Signatures: Dispatcher [employer] EDMS Stacy Crook RN RN iw Nieto, Roman, MD MD rn Leal, Jahala, RN RN jl7 Yovany Alas 5
--- NOTE | 2019-08-26 15:52 | RAD REPORT ---
EXAM DESCRIPTION: RAD - Chest Single View - 08/26/2019 2:52 pm CLINICAL HISTORY: PALPITATIONS Chest pain. COMPARISON: Chest Single View dated 03/06/2019; Chest Single View dated 06/08/2018; Chest Single View dated 11/26/2016; CHEST SINGLE VIEW dated 05/17/2015 FINDINGS: Portable technique limits examination quality. The lungs are grossly clear. The heart is normal in size. No displaced fractures. IMPRESSION: No acute intrathoracic process suspected.
[2019-08-26 16:16] VITALS: O2SAT 96
[2019-08-26 16:17] VITALS: BP 105/72
--- NOTE | 2019-08-27 16:50 | EKG ---
Test Date: 2019-08-26 Test Time: 13:42:18 Drivers' Cash Clerk: CHAN MEASUREMENT RESULTS: Intervals: Rate: 80 RI: 154 QRSD: 82 QT: 362 QTc: 417 [place]: P: 64 RI: 154 QRS: 121 T: 43 INTERPRETIVE STATEMENTS: Normal sinus rhythm Possible Left atrial enlargement Left posterior fascicular block Abnormal ECG Compared to ECG 08/26/2019 13:41:42 Left posterior fascicular block now present Sinus arrhythmia no longer present Right-axis deviation no longer present Electronically Signed On 08-27-19 16:47:43 CDT by Naman Faustin
--- NOTE | 2019-08-27 16:50 | EKG ---
Test Date: 2019-08-26 Test Time: 13:41:42 Pneumatic Tool Repairer: CHAN MEASUREMENT RESULTS: Intervals: Rate: 83 DC: 154 QRSD: 78 QT: 364 QTc: 427 [place]: P: 60 DC: 154 QRS: 120 T: 53 INTERPRETIVE STATEMENTS: Normal sinus rhythm with sinus arrhythmia Right axis deviation Abnormal ECG Compared to ECG 03/06/2019 11:49:32 No significant changes Electronically Signed On 08-27-19 16:47:44 CDT by Naman Faustin
--- NOTE | 2019-08-27 16:50 | EKG ---
Test Date: 2019-08-26 Test Time: 13:42:44 Logistic Manager: CHAN MEASUREMENT RESULTS: Intervals: Rate: 82 CA: 158 QRSD: 78 QT: 362 QTc: 422 [place]: P: 70 CA: 158 QRS: 122 T: 46 INTERPRETIVE STATEMENTS: Normal sinus rhythm Right axis deviation Abnormal ECG Compared to ECG 08/26/2019 13:42:18 Right-axis deviation now present Left posterior fascicular block no longer present Electronically Signed On 08-27-19 16:47:42 CDT by Naman Faustin
== END 2019-08-26 16:01 | disposition home or self-care (01) ==
LOC: ER 13:13
DX: I47.1 Supraventricular tachycardia (principal); Z88.0 Allergy status to penicillin; Z88.6 Allergy status to analgesic agent
CPT/HCPCS: 36415; 71045; 80048; 83735; 83880; 84484; 85025; 93005; 99285

== ENCOUNTER 2020-05-28 10:22 | Emergency (ER) | payer OTHER ==
[2020-05-28 13:40] LABS: Absolute Lymphocytes (CBC) 1.3 K/uL (0.7-4.9); Basophils % 0.8 % (0-1.3); Hematocrit 46.3 % (39.6-49.0); Lymphocytes % 16.1 % (15.3-44.8); RBC Red Blood Cell Count 5.54 M/uL (4.33-5.43)
[2020-05-28 13:42] LABS: Protime INR 0.98
--- NOTE | 2020-05-28 13:47 | RAD REPORT ---
EXAM DESCRIPTION: RAD - Chest Single View - 05/28/2020 1:32 pm CLINICAL HISTORY: PALPITATIONS Chest pain. COMPARISON: Chest Single View dated 08/26/2019; Chest Single View dated 03/06/2019; Chest Single View dated 06/08/2018; Chest Single View dated 11/26/2016 FINDINGS: Portable technique limits examination quality. The lungs are grossly clear. The heart is normal in size. No displaced fractures. IMPRESSION: No acute intrathoracic process suspected.
[2020-05-28 13:55] LABS: ALT/SGPT 27 U/L (12-78); AST/SGOT 13 U/L (15-37); Albumin 3.8 g/dL (3.4-5.0); Alkaline Phosphatase 76 U/L (45-117); BUN Blood Urea Nitrogen 17 mg/dL (7-18); Bicarbonate 31 mmol/L (21-32); Bilirubin Direct 0.1 mg/dL (0-0.2); Bilirubin Total 0.8 mg/dL (0.2-1.0); Glucose Level 82 mg/dL (74-106); Magnesium 2.2 mg/dL (1.8-2.4); NT PRO-BNP 35 pg/mL (<125); Potassium 4.1 mmol/L (3.5-5.1); Protein, Total 7.5 g/dL (6.4-8.2); Sodium Level 140 mmol/L (136-145); Troponin (Emerg Dept Use Only) < 0.02 ng/mL (0.0-0.045)
[2020-05-28 14:25] LABS: Blood Morphology Comment NOT SEEN (NOT SEEN); Platelet Estimate ADEQ; White Blood Cell Scan OK (OK)
--- NOTE | 2020-05-28 14:31 | ER ---
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 Coronavirus screen: Client denies travel out of the [place] in the last 14 days. At this time, the client does not indicate any symptoms associated with coronavirus-19. Ebola Screen: Patient negative for fever greater than or equal to 101.5 degrees Fahrenheit, and additional compatible Ebola Virus Disease symptoms Patient denies exposure to infectious person. Patient denies travel to an Ebola-affected area in the 21 days before illness onset. No symptoms or risks identified at this time. Initial Sepsis Screen: Does the patient meet any 2 criteria? HR > 90 bpm. No. Patient's initial sepsis screen is negative. Does the patient have a suspected source of infection? No. Patient's initial sepsis screen is negative. Risk Assessment: Do you want to hurt yourself or someone else? Patient reports no desire to harm self or others. Onset of symptoms was May 28, 2020. 10:41 Method Of Arrival: Ambulatory 5 10:41 Acuity: ALOK 3 dm5 Historical: - Allergies: 10:46 Codeine; dm5 10:46 PENICILLINS; dm5 - Home Meds: 10:46 Dicyclomine Oral [Active]; metoprolol tartrate 25 mg Oral tab as needed [Active]; dm5 flecainide 50 mg oral tab 2 tabs as needed [Active]; - PMHx: 10:46 ibs; SVT; Atrial Fib; dm5 - PSHx: 10:46 heart ablation; dm5 - Social history:: Smoking status: . Screenin:00 Fall Risk None identified. iw 14:25 Abuse screen: Denies threats or abuse. Denies injuries from another. Nutritional iw screening: No deficits noted. Tuberculosis screening: No symptoms or risk factors identified. Assessment: 12:30 General: Appears in no apparent distress. Behavior is calm, cooperative. Pain: Denies iw pain. Neuro: Level of Consciousness is awake, alert, obeys commands, Oriented to person, place, time, situation, Moves all extremities. Full function. Cardiovascular: Capillary refill < 3 seconds in bilateral fingers Patient's skin is warm and dry. Cardiovascular: Reports lightheadedness, palpitations, syncope. Respiratory: Respiratory effort is even, unlabored, Respiratory pattern is regular, symmetrical. GI: No signs and/or symptoms were reported involving the gastrointestinal system. Abdomen is flat, non-distended. Derm: Skin is intact, is healthy with good turgor. Musculoskeletal: Range of motion: intact in all extremities. 14:25 Reassessment: Patient appears in no apparent distress at this time. Patient and/or iw family updated on plan of care and expected duration. Pain level reassessed. Patient is alert, oriented x 3, equal unlabored respirations, skin warm/dry/pink. Vital Signs: 10:41 BP 117 / 87; Pulse 104; Resp 18; Temp 97.8; Pulse Ox 98% on R/A; Weight 95.25 kg; dm5 Height 6 ft. 4 in. (193.04 cm); Pain 0/10; 14:26 BP 104 / 75; Pulse 72; Resp 16; Pulse Ox 96% on R/A; Pain 0/10; iw 10:41 Body Mass Index 25.56 (95.25 kg, 193.04 cm) dm5 ED Course: 10:26 Patient arrived in ED. ds1 10:44 Triage completed. dm5 12:30 Patient has correct armband on for positive identification. iw 12:47 Stacy Crook, STIVEN is Primary Nurse. iw 13:10 Lawrence Hernandez MD is Attending Physician. kdr 13:27 Initial lab(s) drawn, by tn, sent to lab. Inserted saline lock: 20 gauge in left dh3 antecubital area, using aseptic technique. Blood collected. 13:32 XRAY Chest (1 view) In Process Unspecified. EDMS 13:50 No provider procedures requiring assistance completed. iw 14:25 Arm band placed on. iw 14:57 IV discontinued, intact, bleeding controlled, No redness/swelling at site. Pressure iw dressing applied. Administered Medications: No medications were administered Outcome: 14:30 Discharge ordered by . kdr 14:57 Discharged to home ambulatory. iw 14:57 Condition: good 14:57 Discharge instructions given to patient, Instructed on discharge instructions, follow up and referral plans. Demonstrated understanding of instructions, follow-up care. 14:58 Patient left the ED. Signatures: Dispatcher [employer] Brii Rodríguez, RN RN dm5 Lawrence Hernandez MD MD kdr Sanford, Demi ds1 Stacy Crook RN RN Marleen Hudson 3
--- NOTE | 2020-05-28 14:31 | EDPHYS ---
Physician Documentation [facility] Name: Matthew Lee Age: 49 yrs Sex: Male : 1970 Arrival Date: 05/28/2020 Time: 10:26 Bed 14 Private MD: ED Physician Lawrence Hernandez HPI: 05/29 06:46 This 49 yrs old Male presents to ER via Ambulatory with complaints of Near kdr Syncope, High Blood Pressure. 06:46 The patient presents with a history of irregular heart beat, heart racing. Context: The kdr symptoms occur at rest, with light activity. Onset: The symptoms/episode began/occurred suddenly, just prior to arrival, this morning. Duration: The patient or guardian reports multiple episodes, that have now resolved, that are intermittent, that wax and wane, with no pattern. Modifying factors: The symptoms are aggravated by nothing. The symptoms are alleviated by nothing. Associated signs and symptoms: Pertinent positives: lightheadedness, syncope, near-syncope. Severity of symptoms: At their worst the symptoms were moderate incapacitating in the emergency department the symptoms have resolved. The patient has experienced similar episodes in the past, multiple times. The patient has not recently seen a physician. The patient has long standing A-fib and take beta blockers as needed for rate control.. Historical: - Allergies: 05/28 10:46 Codeine; dm5 10:46 PENICILLINS; dm5 - Home Meds: 10:46 Dicyclomine Oral [Active]; metoprolol tartrate 25 mg Oral tab as needed [Active]; dm5 flecainide 50 mg oral tab 2 tabs as needed [Active]; - PMHx: 10:46 ibs; SVT; Atrial Fib; dm5 - PSHx: 10:46 heart ablation; dm5 - Social history:: Smoking status: . ROS: 05/29 06:46 Constitutional: Negative for fever, chills, and weight loss, Eyes: Negative for injury, kdr pain, redness, and discharge, ENT: Negative for injury, pain, and discharge, Neck: Negative for injury, pain, and swelling, Respiratory: Negative for shortness of breath, cough, wheezing, and pleuritic chest pain, Abdomen/GI: Negative for abdominal pain, nausea, vomiting, diarrhea, and constipation, Back: Negative for injury and pain, : Negative for injury, bleeding, discharge, and swelling, MS/Extremity: Negative for injury and deformity, Skin: Negative for injury, rash, and discoloration, Neuro: Negative for headache, weakness, numbness, tingling, and seizure activity. Psych: Negative for depression, anxiety, suicide ideation, homicidal ideation, and hallucinations, Allergy/Immunology: Negative for hives, rash, and allergies, Endocrine: Negative for neck swelling, polydipsia, polyuria, polyphagia, and marked weight changes, Hematologic/Lymphatic: Negative for swollen nodes, abnormal bleeding, and unusual bruising. Cardiovascular: Positive for palpitations, Negative for chest pain, edema, orthopnea, paroxysmal nocturnal dyspnea. Exam: 06:46 Constitutional: This is a well developed, well nourished patient who is awake, alert, kdr and in no acute distress. Head/Face: Normocephalic, atraumatic. Eyes: Pupils equal round and reactive to light, extra-ocular motions intact. Lids and lashes normal. Conjunctiva and sclera are non-icteric and not injected. Cornea within normal limits. Periorbital areas with no swelling, redness, or edema. Neck: Trachea midline, no thyromegaly or masses palpated, and no cervical lymphadenopathy. Supple, full range of motion without nuchal rigidity, or vertebral point tenderness. No Meningismus. Chest/axilla: Normal chest wall appearance and motion. Nontender with no deformity. No lesions are appreciated. Cardiovascular: Regular rate and rhythm with a normal S1 and S2. No gallops, murmurs, or rubs. Normal PMI, no JVD. No pulse deficits. Respiratory: Lungs have equal breath sounds bilaterally, clear to auscultation and percussion. No rales, rhonchi or wheezes noted. No increased work of breathing, no retractions or nasal flaring. Abdomen/GI: Soft, non-tender, with normal bowel sounds. No distension or tympany. No guarding or rebound. No evidence of tenderness throughout. Back: No spinal tenderness. No costovertebral tenderness. Full range of motion. Skin: Warm, dry with normal turgor. Normal color with no rashes, no lesions, and no evidence of cellulitis. MS/ Extremity: Pulses equal, no cyanosis. Neurovascular intact. Full, normal range of motion. Neuro: Awake and alert, GCS 15, oriented to person, place, time, and situation. Cranial nerves II-XII grossly intact. Motor strength 5/5 in all extremities. Sensory grossly intact. Cerebellar exam normal. Normal gait. Psych: Awake, alert, with orientation to person, place and time. Behavior, mood, and affect are within normal limits. 06:46 ECG was reviewed by the Attending Physician. Vital Signs: 05/28 10:41 BP 117 / 87; Pulse 104; Resp 18; Temp 97.8; Pulse Ox 98% on R/A; Weight 95.25 kg; dm5 Height 6 ft. 4 in. (193.04 cm); Pain 0/10; 14:26 BP 104 / 75; Pulse 72; Resp 16; Pulse Ox 96% on R/A; Pain 0/10; iw 10:41 Body Mass Index 25.56 (95.25 kg, 193.04 cm) dm5 MDM: 14:30 Patient medically screened. kdr 05/29 06:46 Data reviewed: vital signs, nurses notes, lab test result(s), EKG, radiologic studies. kdr Counseling: I had a detailed discussion with the patient and/or guardian regarding: the historical points, exam findings, and any diagnostic results supporting the discharge/admit diagnosis, lab results, radiology results, the need for outpatient follow up. Special discussion: Based on the patient's history, exam, and Dx evaluation, there is no indication for emergent intervention or inpatient Tx. It is understood by the patient/guardian that if the Sx's persist or worsen they need to return immediately for re-evaluation. I discussed with the patient/guardian in detail that at this point there is no indication for admission to the hospital. It is understood, however, that if the symptoms persist or worsen the patient needs to return immediately for re-evaluation. 05/28 13:01 Order name: Basic Metabolic Panel iw 05/28 13:01 Order name: CBC with Diff; Complete Time: 14:28 iw 05/28 13:01 Order name: LFT's 05/28 13:01 Order name: Magnesium iw 05/28 13:01 Order name: NT PRO-BNP 05/28 13:01 Order name: PT-INR; Complete Time: 14:28 iw 05/28 13:01 Order name: Troponin (emerg Dept Use Only); Complete Time: 14:28 iw 05/28 13:01 Order name: XRAY Chest (1 view); Complete Time: 14:28 iw 05/28 13:01 Order name: EKG; Complete Time: 13:02 iw 05/28 13:02 Order name: Basic Metabolic Panel; Complete Time: 14:28 EDMS 05/28 13:02 Order name: Liver (Hepatic) Function; Complete Time: 14:28 EDMS 05/28 13:02 Order name: Magnesium; Complete Time: 14:28 EDMS 05/28 13:02 Order name: NT PRO-BNP; Complete Time: 14:28 EDMS 05/28 14:26 Order name: CBC Smear Scan; Complete Time: 14:28 EDMS 05/28 13:01 Order name: Cardiac monitoring; Complete Time: 13:45 iw 05/28 13:01 Order name: EKG - Nurse/Tech; Complete Time: 13:14 iw 05/28 13:01 Order name: IV Saline Lock; Complete Time: 13:45 iw 05/28 13:01 Order name: Labs collected and sent; Complete Time: 13:45 iw 05/28 13:01 Order name: O2 Per Protocol; Complete Time: 13:45 iw 05/28 13:01 Order name: O2 Sat Monitoring; Complete Time: 13:45 iw EC:46 Clinical impression: NSR w/ Non-specific ST/T Changes. kdr Administered Medications: No medications were administered Disposition: 05/28/20 14:30 Discharged to Home. Impression: Palpitations, Atrial fibrillation and flutter - Resolved, Weakness. - Condition is Stable. - Discharge Instructions: Weakness, Icik-vs-Ogth, Palpitations, Npzg-zp-Aocl, Atrial Fibrillation, Ubsz-pv-Jedl. - Medication Reconciliation Form, Thank You Letter form. - Follow up: Private Physician; When: 2 - 3 days; Reason: If symptoms return, Further diagnostic work-up, Recheck today's complaints, Continuance of care, Re-evaluation by your physician. - Problem is new. - Symptoms are resolved. Signatures: Dispatcher [employer] EDMS Brii Lou RN RN dm5 Lawrence Hernandez MD MD kdr Stacy Crook RN RN iw Corrections: (The following items were deleted from the chart) 05/28 14:58 14:30 05/28/2020 14:30 Discharged to Home. Impression: Palpitations; Atrial iw fibrillation and flutter - Resolved; Weakness. Condition is Stable. Forms are Medication Reconciliation Form, Thank You Letter, Antibiotic Education, Prescription Opioid Use. Follow up: Private Physician; When: 2 - 3 days; Reason: If symptoms return, Further diagnostic work-up, Recheck today's complaints, Continuance of care, Re-evaluation by your physician. Problem is new. Symptoms are resolved. kdr
[2020-05-28 15:50] VITALS: TEMP 97.8
[2020-05-28 15:51] VITALS: BP 104/75; O2SAT 96
== END 2020-05-28 14:58 | disposition home or self-care (01) ==
LOC: ER 10:22
DX: R53.1 Weakness (principal); I48.91 Unspecified atrial fibrillation; Z88.0 Allergy status to penicillin; Z88.5 Allergy status to narcotic agent
CPT/HCPCS: 36415; 71045; 80048; 80076; 83735; 83880; 84484; 85025; 85610; 93005; 99283

== ENCOUNTER 2020-12-26 09:27 | Day surgery (SDC) | payer OTHER ==
[2020-12-26 10:00] LABS: Absolute Lymphocytes (CBC) 1.3 K/uL (0.7-4.9); Basophils % 0.8 % (0-1.3); Hematocrit 46.1 % (39.6-49.0); Lymphocytes % 23.5 % (15.3-44.8); RBC Red Blood Cell Count 5.46 M/uL (4.33-5.43)
[2020-12-26] MEDS ORDERED: CEFOXITIN/SWI 1gm 1 GM/10 ML SYR ONE (10:07)
[2020-12-26] MEDS ORDERED: Ringers Lactate 1,000 ML IV ONE (10:07)
[2020-12-26 10:10] LABS: Potassium 3.9 mmol/L (3.5-5.1)
--- NOTE | 2020-12-26 10:32 | RAD REPORT ---
EXAM DESCRIPTION: [place] Single View12/26/2020 10:18 am CLINICAL HISTORY: Preop for hemorrhoid surgery COMPARISON: May 2020 FINDINGS: The lungs appear clear of acute infiltrate. The heart is normal size IMPRESSION: No acute abnormalities displayed
--- NOTE | 2020-12-26 10:48 | EKG ---
Test Date: 2020-12-26 Test Time: 09:38:54 Power Grader Operator: EPI MEASUREMENT RESULTS: Intervals: Rate: 65 MT: 156 QRSD: 82 QT: 398 QTc: 413 [place]: P: 65 MT: 156 QRS: 124 T: 51 INTERPRETIVE STATEMENTS: Normal sinus rhythm Right axis deviation Abnormal ECG Compared to ECG 05/28/2020 12:53:32 No significant changes Electronically Signed On 12-26-20 10:48:00 CDT by Naman Faustin
[2020-12-26] MEDS ORDERED: FENTANYL CITR 100 MCG/2 ML ONE (10:59)
[2020-12-26] MEDS ORDERED: propofoL 200 MG/20 ML VIAL IV ONE (10:59)
[2020-12-26] MEDS ORDERED: MIDAZOLAM HCL 2 MG/2 ML INJ ONE (10:59)
[2020-12-26] MEDS ORDERED: LIDOCAINE 1% MPF 5 ML VIAL ONE (10:59)
[2020-12-26] MEDS ORDERED: BUPIVACAINE 0.5% PF 10 ML VIAL ONE (11:00)
[2020-12-26] MEDS ORDERED: KETOROLAC 30 MG/ML INJ ONE (11:42)
[2020-12-26] MEDS ORDERED: ONDANSETRON 4 MG/2 ML VIAL ONE (11:45)
--- NOTE | 2020-12-26 12:48 | OP ---
Date of Procedure: 12/26/2020 Surgeon: Kyrie Garcia MD Brazing Furnace Operator: None. Preoperative Diagnosis: Thrombosed hemorrhoid. Postoperative Diagnosis: Thrombosed hemorrhoid. Procedure: Exam under anesthesia, rigid proctoscopy, and hemorrhoidectomy. Estimated Blood Loss: Minimal. Specimen: Left lateral thrombosed ulcerated hemorrhoid. Finding: As above. Anesthesia: General. Complications: None. Disposition: The patient tolerated the procedure in stable condition and taken to Recovery in good g eneral condition. Procedure In Detail: The patient was brought to the OR and placed in supine position. General anest hesia begun. The patient was prepped and draped in the usual sterile fashion, in the lithotomy posit ion. Exam under anesthesia revealed a thrombosed ulcerated left lateral hemorrhoid approximately 1.5 cm in diameter. Rigid proctoscopy did not reveal any other evidence of disease. Marcaine 0.5% infi ltrated locally. Harmonic Scalpel used to excise the thrombosed hemorrhoids. Bleeding controlled wi th cautery. All of the clots removed and then rectal pack consisting of Gelfoam, Surgicel, and Vasel ine gauze was placed in the anal canal. Sterile dressing applied. The patient was awakened and take n to Recovery in good general condition. Discharge Note: The patient will go to Day Surgery and home when stable. Disposition: Home. Condition: Stable. Discharge Instructions: Resume home medications and diet. Activity as tolerated. No heavy lifting. High-fiber diet. Metamucil 1 tablespoon p.o. t.i.d. and Colace 100 mg p.o. q.12. Procto-HC 2.5% t o anus b.i.d. and p.r.n. Sitz baths q.i.d., high-fiber diet. Tylenol No.3 one tablet p.o. q.4 p.r.n . pain and Phenergan 25 mg p.o. q.6 p.r.n. nausea. /MODL Voice ID: [id number] Report ID: [id number]
[2020-12-26] MEDS ORDERED: HYDROCODONE/APAP 7.5/325 MG TAB ONE (13:02)
[2020-12-26 13:28] VITALS: BP 106/64; TEMP 96.7; O2SAT 97
== END 2020-12-26 13:25 | disposition home or self-care (01) ==
LOC: OR 09:27
PROVIDERS: ATTEND Surgery
PROC: 0DJD8ZZ Inspection of Lower Intestinal Tract, Via Natural or Artificial Opening Endoscopic (ICD-10-PCS; 2020-12-26)
PROC: 06BY0ZC Excision of Hemorrhoidal Plexus, Open Approach (ICD-10-PCS; principal; 2020-12-26 12:15)
DX: K64.5 Perianal venous thrombosis (principal); Z20.822 Contact with and (suspected) exposure to COVID-19
CPT/HCPCS: 93005; 85025; 80048; 36415; 88304; 71045; 46083; 45300; U0003; J2704; J2250; J3010; J7120; J2405

== ENCOUNTER 2021-01-21 21:38 | Observation (INO) | payer OTHER ==
[2021-01-21 22:52] LABS: Absolute Lymphocytes (CBC) 1.6 K/uL (0.7-4.9); Basophils % 0.5 % (0-1.3); Hematocrit 48.9 % (39.6-49.0); Lymphocytes % 9.9 % (15.3-44.8); MPV 7.2 fL (7.6-11.3); RBC Red Blood Cell Count 5.79 M/uL (4.33-5.43)
[2021-01-21 23:19] LABS: Albumin 4.6 g/dL (3.4-5.0); Bilirubin Direct 0.2 mg/dL (0-0.2); Bilirubin Total 1.3 mg/dL (0.2-1.0); Potassium 3.9 mmol/L (3.5-5.1); Protein, Total 8.2 g/dL (6.4-8.2)
[2021-01-21 23:46] LABS: SARS-COV-2 RT PCR NEGATIVE (NEGATIVE)
[2021-01-22 00:31] LABS: Urine Blood Trace-intact (Negative); Urine Glucose Negative (Negative); Urine Protein Negative (Negative); Urine Specific Gravity 1.025 (1.005-1.030)
[2021-01-22] MEDS ORDERED: NA CHLORIDE 0.9% 1,000 ML ONE ×2 (00:54→06:09)
[2021-01-22] MEDS ORDERED: ONDANSETRON 4 MG/2 ML VIAL ONE ×2 (00:54→09:58)
[2021-01-22] MEDS ORDERED: MORPHINE 2 MG/ML SYR ONE ×2 (00:54→06:09)
[2021-01-22] MEDS ORDERED: CIPROFLOXACIN 400mg IV 400 MG/200 ML BAG IV ONE (00:55)
[2021-01-22] MEDS ORDERED: FAMOTIDINE 20 MG/2 ML VIAL IV ONE ×2 (00:55→07:59)
[2021-01-22] MEDS ORDERED: METRONIDAZOLE 500mg IVPB 500 MG/100 ML BAG IV ONE (00:56)
--- NOTE | 2021-01-22 02:36 | ER ---
Nurse's Notes [facility] Name: Matthew Lee Age: 50 yrs Sex: Male : 1970 Arrival Date: 01/21/2021 Time: 21:39 Bed 18 Private MD: Diagnosis: Acute appendicitis with localized peritonitis;Elevated white blood cell count;Abdominal tenderness Presentation: 01/21 22:23 Chief complaint: Patient states: Abdominal pain x 1 day. More sever starting at 18:00 kg and nausea. Denies vomiting or diarrhea. Coronavirus screen: Vaccine status: Patient reports being unvaccinated. Client denies travel out of the [place] in the last 14 days. At this time, unable to obtain information related to travel outside the [place] Client presents with at least one sign or symptom that may indicate coronavirus-19. Standard/surgical mask placed on the client. Provider contacted for isolation considerations. Ebola Screen: Patient negative for fever greater than or equal to 101.5 degrees Fahrenheit, and additional compatible Ebola Virus Disease symptoms Patient denies exposure to infectious person. Patient denies travel to an Ebola-affected area in the 21 days before illness onset. Initial Sepsis Screen: Does the patient meet any 2 criteria? No. Patient's initial sepsis screen is negative. Does the patient have a suspected source of infection? No. Patient's initial sepsis screen is negative. Risk Assessment: Do you want to hurt yourself or someone else? Patient reports no desire to harm self or others. Onset of symptoms was January 21, 2021. 22:23 Method Of Arrival: Ambulatory kg 22:23 Acuity: ALOK 3 kg Triage Assessment: 22:27 General: Appears in no apparent distress. Behavior is calm, cooperative, appropriate kg for age, quiet. Pain: Complains of pain in left lower quadrant Pain radiates to abdomen. GI: Reports lower abdominal pain, upper abdominal pain, nausea. Historical: - Allergies: 22:25 KNDA; kg - Home Meds: 22:25 Dicyclomine Oral [Active]; kg - PMHx: 22:25 Atrial Fib; ibs; SVT; kg - PSHx: 22:26 Hemorrhoids; kg - Immunization history:: Adult Immunizations not immunized, Client reports having NOT received the Covid vaccine. - Social history:: Smoking status: Patient denies any tobacco usage or history of. Patient uses alcohol, only on a social basis. - Family history:: not pertinent. Screenin:29 Abuse screen: Denies threats or abuse. Denies injuries from another. Nutritional kg screening: No deficits noted. Tuberculosis screening: No symptoms or risk factors identified. Fall Risk None identified. Assessment: 01/22 00:43 Reassessment: Patient is alert, oriented x 3, equal unlabored respirations, skin kc4 warm/dry/pink. General: Appears in no apparent distress. well groomed, Behavior is calm, cooperative, appropriate for age, Reports fatigue for Denies fever, abd pain. Pain: Denies pain. Complains of pain in abdomen Pain Quality of pain is described as burning, Pain began 2-3 days ago. Is Alleviated by Also complains of. Neuro: No deficits noted. Cardiovascular: No deficits noted. Respiratory: No deficits noted. GI: No deficits noted. Abdomen is non-distended, Bowel sounds present X 4 quads. present in right upper quadrant, left upper quadrant, right lower quadrant and left lower quadrant Abd is soft and non tender X 4 quads. Reports lower abdominal pain, upper abdominal pain, normal bowel habits, Patient currently denies anorexia, bloating, bloody stool, diarrhea, hemorrhoids, incontinence, indigestion, intolerance of fluids, intolerance of food. : No deficits noted. No signs and/or symptoms were reported regarding the genitourinary system. EENT: No deficits noted. No signs and/or symptoms were reported regarding the EENT system. Derm: No deficits noted. No signs and/or symptoms reported regarding the dermatologic system. Musculoskeletal: No deficits noted. No signs and/or symptoms reported regarding the musculoskeletal system. Vital Signs: 01/21 22:23 Pulse 103; Resp 20; Temp 98.2(O); Pulse Ox 95% on R/A; Weight 95.25 kg (R); Height 6 kg ft. 4 in. (193.04 cm); Pain 10/10; 22:33 BP 121 / 77; kg 23:39 BP 103 / 75 LA Sitting (auto/reg); Pulse 91; Resp 20; Temp 98.4; Pulse Ox 99% on R/A; tt3 Pain 8/10; 01/22 03:08 BP 101 / 64; Pulse 74; Resp 18; Temp 98.6; Pulse Ox 100% on R/A; Pain 5/10; kc4 05:57 BP 118 / 79; Pulse 76; Resp 18; Temp 98.8; Pain 4/10; kc4 01/21 22:23 Body Mass Index 25.56 (95.25 kg, 193.04 cm) kg ED Course: 01/21 21:39 Patient arrived in ED. wm 22:25 Triage completed. kg 22:27 Arm band placed on left wrist. kg 22:29 Inserted saline lock: 20 gauge in left antecubital area, using aseptic technique. kg ,using aseptic technique. By [employer] Blood collected. 22:41 Initial lab(s) drawn, by mt, sent to lab. Inserted saline lock: 20 gauge in left tt3 antecubital area, using aseptic technique. Blood collected. 01/22 00:09 Elver Lainez MD is Attending Physician. [facility] 00:13 Deb Diaz is Primary Nurse. kc4 00:15 Flu Sent. kc4 01:00 CT Abd/Pelvis - IV Contrast Only In Process Unspecified. EDMS 02:12 Patient has correct armband on for positive identification. Bed in low position. Call kc4 light in reach. Side rails up X 1. Pulse ox on. NIBP on. Door closed. Noise minimized. Lights dimmed. Warm blanket given. 02:14 No provider procedures requiring assistance completed. kc4 02:35 Haider Villegas MD is Hospitalizing Provider. [facility] 11:40 Patient admitted, IV remains in place. ss Administered Medications: 00:41 Drug: Zofran (Ondansetron) 4 mg Route: IVP; Infused Over: 2 mins; Site: right kc4 antecubital; 03:40 Follow up: Response: No adverse reaction kc4 00:41 Drug: morphine 2 mg Route: IVP; Site: right antecubital; kc4 03:39 Follow up: Response: No adverse reaction kc4 03:40 Follow up: Response: No adverse reaction kc4 00:41 Drug: Pepcid (famotidine) 20 mg Route: IVP; Site: right antecubital; kc4 03:38 Follow up: Response: No adverse reaction kc4 00:42 Drug: NS 0.9% 1000 ml Route: IV; Rate: 1 bolus; Infused Over: 1 hrs; Site: right kc4 antecubital; 03:40 Follow up: Response: No adverse reaction; IV Status: Completed infusion kc4 00:42 Drug: Flagyl (metroNIDAZOLE) 500 mg Volume: 100 ml; Route: IVPB; Rate: 200 ml/hr; kc4 Infused Over: 30 mins; Site: right antecubital; 03:15 Follow up: Response: No adverse reaction kc4 01:34 Drug: Cipro (ciprofloxacin) 400 mg Volume: 200 ml; Route: IVPB; Infused Over: 60 mins; kc4 Site: right antecubital; Delivery: Primary tubing; 03:39 Follow up: Response: No adverse reaction; IV Status: Completed infusion kc4 02:57 Drug: Zosyn (piperacillin-tazobactam) 3.375 grams Route: IVPB; Infused Over: 60 mins; kc4 Site: right antecubital; Delivery: Primary tubing; 03:38 Follow up: Response: No adverse reaction; IV Status: Completed infusion kc4 05:56 Drug: NS 0.9% 1000 ml Route: IV; Rate: 125 ml/hr; Site: right antecubital; kc4 05:56 Drug: morphine 2 mg Route: IVP; Site: right antecubital; kc4 Outcome: 02:36 Decision to Hospitalize by Provider. lyndon 11:40 Admitted to OR accompanied by nurse, via stretcher. ss 11:41 Patient left the ED. ss Signatures: Dispatcher [employer] EDElver Odom MD MD cha Smirch, Shelby, RN RN Rojelio Martínez tt3 Hina Torres RN RN kg Marsh, Wendy wm Chuman, Kourtney kc4 Corrections: (The following items were deleted from the chart) 01/21 22:28 22:25 Allergies: PENICILLINS; kg kg 22:28 22:25 Home Meds: flecainide 50 mg Oral tab 2 tabs as needed; kg kg 22:28 22:25 PSHx: None; kg kg 01/22 02:14 02:12 Allergies: Codeine; kc4 kc4
--- NOTE | 2021-01-22 02:36 | EDPHYS ---
Physician Documentation [facility] Name: Matthew Lee Age: 50 yrs Sex: Male : 1970 Arrival Date: 01/21/2021 Time: 21:39 Bed 18 Private MD: ED Physician Elver Lainez HPI: 01/22 00:23 This 50 yrs old Male presents to ER via Ambulatory with complaints of lyndon Abdominal Pain. 00:23 The patient presents with abdominal pain abdominal distention in the upper abdomen, in lyndon the lower abdomen. Onset: The symptoms/episode began/occurred 2 day(s) ago. The symptoms do not radiate. Associated signs and symptoms: Pertinent positives: nausea and vomiting. The symptoms are described as crampy, dull. Modifying factors: The symptoms are alleviated by nothing, the symptoms are aggravated by nothing. Severity of pain: At its worst the pain was moderate in the emergency department the pain is unchanged. The patient has not experienced similar symptoms in the past. Historical: - Allergies: 01/21 22:25 KNDA; kg - Home Meds: 22:25 Dicyclomine Oral [Active]; kg - PMHx: 22:25 Atrial Fib; ibs; SVT; kg - PSHx: 22:26 Hemorrhoids; kg - Immunization history:: Adult Immunizations not immunized, Client reports having NOT received the Covid vaccine. - Social history:: Smoking status: Patient denies any tobacco usage or history of. Patient uses alcohol, only on a social basis. - Family history:: not pertinent. ROS: 01/22 00:23 Constitutional: Negative for fever, chills, and weight loss, Eyes: Negative for injury, lyndon pain, redness, and discharge, ENT: Negative for injury, pain, and discharge, Neck: Negative for injury, pain, and swelling, Cardiovascular: Negative for chest pain, palpitations, and edema, Respiratory: Negative for shortness of breath, cough, wheezing, and pleuritic chest pain, Back: Negative for injury and pain, : Negative for injury, bleeding, discharge, and swelling, MS/Extremity: Negative for injury and deformity, Skin: Negative for injury, rash, and discoloration, Neuro: Negative for headache, weakness, numbness, tingling, and seizure, Psych: Negative for depression, anxiety, suicide ideation, homicidal ideation, and hallucinations, Allergy/Immunology: Negative for hives, rash, and allergies, Endocrine: Negative for neck swelling, polydipsia, polyuria, polyphagia, and marked weight changes, Hematologic/Lymphatic: Negative for swollen nodes, abnormal bleeding, and unusual bruising. Abdomen/GI: Positive for abdominal pain, of the left upper quadrant and left lower quadrant. Exam: 00:23 Constitutional: This is a well developed, well nourished patient who is awake, alert, lyndon and in no acute distress. Head/Face: Normocephalic, atraumatic. Eyes: Pupils equal round and reactive to light, extra-ocular motions intact. Lids and lashes normal. Conjunctiva and sclera are non-icteric and not injected. Cornea within normal limits. Periorbital areas with no swelling, redness, or edema. ENT: Nares patent. No nasal discharge, no septal abnormalities noted. Tympanic membranes are normal and external auditory canals are clear. Oropharynx with no redness, swelling, or masses, exudates, or evidence of obstruction, uvula midline. Mucous membranes moist. Neck: Trachea midline, no thyromegaly or masses palpated, and no cervical lymphadenopathy. Supple, full range of motion without nuchal rigidity, or vertebral point tenderness. No Meningismus. Chest/axilla: Normal chest wall appearance and motion. Nontender with no deformity. No lesions are appreciated. Cardiovascular: Regular rate and rhythm with a normal S1 and S2. No gallops, murmurs, or rubs. Normal PMI, no JVD. No pulse deficits. Respiratory: Lungs have equal breath sounds bilaterally, clear to auscultation and percussion. No rales, rhonchi or wheezes noted. No increased work of breathing, no retractions or nasal flaring. Back: No spinal tenderness. No costovertebral tenderness. Full range of motion. Male : Normal genitalia with no discharge or lesions. Skin: Warm, dry with normal turgor. Normal color with no rashes, no lesions, and no evidence of cellulitis. MS/ Extremity: Pulses equal, no cyanosis. Neurovascular intact. Full, normal range of motion. Neuro: Awake and alert, GCS 15, oriented to person, place, time, and situation. Cranial nerves II-XII grossly intact. Motor strength 5/5 in all extremities. Sensory grossly intact. Cerebellar exam normal. Normal gait. Psych: Awake, alert, with orientation to person, place and time. Behavior, mood, and affect are within normal limits. 00:23 Abdomen/GI: Inspection: abdomen appears normal, Bowel sounds: normal, Palpation: mild abdominal tenderness, moderate abdominal tenderness, in the left upper quadrant and left lower quadrant, Liver: no appreciated palpable abnormalities, Hernia: not appreciated. Vital Signs: 01/21 22:23 Pulse 103; Resp 20; Temp 98.2(O); Pulse Ox 95% on R/A; Weight 95.25 kg (R); Height 6 kg ft. 4 in. (193.04 cm); Pain 10/10; 22:33 BP 121 / 77; kg 23:39 BP 103 / 75 LA Sitting (auto/reg); Pulse 91; Resp 20; Temp 98.4; Pulse Ox 99% on R/A; tt3 Pain 8/10; 01/22 03:08 BP 101 / 64; Pulse 74; Resp 18; Temp 98.6; Pulse Ox 100% on R/A; Pain 5/10; kc4 05:57 BP 118 / 79; Pulse 76; Resp 18; Temp 98.8; Pain 4/10; kc4 01/21 22:23 Body Mass Index 25.56 (95.25 kg, 193.04 cm) kg MDM: 00:09 Patient medically screened. lyndon 00:25 Differential diagnosis: cholecystitis, Cholelithiasis, diverticulitis, gastritis, GI lyndon Bleed, non-specific abd pain, pancreatitis, Peptic Ulcer Disease, Peritonitis, urinary tract infection. Data reviewed: vital signs, nurses notes, lab test result(s), radiologic studies, CT scan, plain films. Data interpreted: monitoring coordinator: rate is 91 beats/min, rhythm is regular, Pulse oximetry: on room air is 99 %. Counseling: I had a detailed discussion with the patient and/or guardian regarding: the historical points, exam findings, and any diagnostic results supporting the discharge/admit diagnosis, lab results, radiology results, the need for outpatient follow up, for definitive care, 01/21 22:30 Order name: Basic Metabolic Panel; Complete Time: 00:16 kg 01/21 22:30 Order name: CBC with Diff; Complete Time: 00:16 kg 01/21 22:30 Order name: Hepatic Function; Complete Time: 00:16 kg 01/21 22:30 Order name: Lipase; Complete Time: 00:16 kg 01/21 22:33 Order name: Flu kg 01/21 23:46 Order name: COVID-19/FLU A+B; Complete Time: 00:16 EDMS 01/22 00:18 Order name: CT Abd/Pelvis - IV Contrast Only [facility] 01/22 00:31 Order name: Urine Dipstick-Ancillary; Complete Time: 00:47 EDMS 01/21 22:30 Order name: IV Saline Lock; Complete Time: 00:14 kg 01/21 22:30 Order name: Labs collected and sent; Complete Time: 00:14 kg 01/22 00:18 Order name: Urine Dipstick-Ancillary (obtain specimen); Complete Time: 00:43 [facility] Administered Medications: 00:41 Drug: Zofran (Ondansetron) 4 mg Route: IVP; Infused Over: 2 mins; Site: right kc4 antecubital; 03:40 Follow up: Response: No adverse reaction kc4 00:41 Drug: morphine 2 mg Route: IVP; Site: right antecubital; kc4 03:39 Follow up: Response: No adverse reaction kc4 03:40 Follow up: Response: No adverse reaction kc4 00:41 Drug: Pepcid (famotidine) 20 mg Route: IVP; Site: right antecubital; kc4 03:38 Follow up: Response: No adverse reaction kc4 00:42 Drug: NS 0.9% 1000 ml Route: IV; Rate: 1 bolus; Infused Over: 1 hrs; Site: right kc4 antecubital; 03:40 Follow up: Response: No adverse reaction; IV Status: Completed infusion kc4 00:42 Drug: Flagyl (metroNIDAZOLE) 500 mg Volume: 100 ml; Route: IVPB; Rate: 200 ml/hr; kc4 Infused Over: 30 mins; Site: right antecubital; 03:15 Follow up: Response: No adverse reaction kc4 01:34 Drug: Cipro (ciprofloxacin) 400 mg Volume: 200 ml; Route: IVPB; Infused Over: 60 mins; kc4 Site: right antecubital; Delivery: Primary tubing; 03:39 Follow up: Response: No adverse reaction; IV Status: Completed infusion kc4 02:57 Drug: Zosyn (piperacillin-tazobactam) 3.375 grams Route: IVPB; Infused Over: 60 mins; kc4 Site: right antecubital; Delivery: Primary tubing; 03:38 Follow up: Response: No adverse reaction; IV Status: Completed infusion kc4 05:56 Drug: NS 0.9% 1000 ml Route: IV; Rate: 125 ml/hr; Site: right antecubital; kc4 05:56 Drug: morphine 2 mg Route: IVP; Site: right antecubital; kc4 Disposition Summary: 01/22/21 02:36 Hospitalization Ordered Hospitalization Status: Observation lyndon Provider: Haider Villegas cha Condition: Stable lyndon Problem: new lyndon Symptoms: have improved lyndon Bed/Room Type: Standard [facility] Location: [facility] ER HOLD(01/22/21 02:48) tl1 Room Assignment: ERHOLD-(01/22/21 02:48) tl1 Diagnosis - Acute appendicitis with localized peritonitis lyndon - Elevated white blood cell count lyndon - Abdominal tenderness lyndon Forms: - Medication Reconciliation Form lyndon - SBAR form lyndon Signatures: Dispatcher [employer] EDMS Elver Lainez MD MD cha Lasagna, Tonya, RN RN tl1 Hina Torres RN RN kg Deb Diaz kc4 Corrections: (The following items were deleted from the chart) 01/21 22:28 22:25 Allergies: PENICILLINS; kg kg 22:28 22:25 Home Meds: flecainide 50 mg Oral tab 2 tabs as needed; kg kg 22:28 22:25 PSHx: None; kg kg 23:07 22:32 CORONAVIRUS+MR.LAB.BRZ ordered. EDMS EDMS 23:07 22:34 Influenza Screen (A ordered. EDMS EDMS 01/22 02:14 02:12 Allergies: Codeine; kc4 kc4 02:48 02:36 Telemetry/MedSurg (observation) lyndon tl1 02:48 02:36 lyndon tl1
[2021-01-22] MEDS ORDERED: PIPERACIL/TAZO 3.375 GM VIAL IV ONE (03:12)
[2021-01-22] MEDS ORDERED: NA CHLORIDE 0.9% 100 ML ONE (03:13)
[2021-01-22 04:06] VITALS: BMI 25.4
[2021-01-22] MEDS ORDERED: MORPHINE 4 MG/ML SYR IV PRN (07:14)
[2021-01-22] MEDS ORDERED: ACETAMINOPHEN 500 MG TAB PO PRN (07:14)
[2021-01-22] MEDS ORDERED: ONDANSETRON 4 MG/2 ML VIAL IV PRN (07:14)
[2021-01-22] MEDS ORDERED: D5 0.45 NS 1,000 ML IV SCH (07:14)
[2021-01-22] MEDS ORDERED: D5 0.45 NS 1,000 ML IV ONE (07:59)
[2021-01-22] MEDS ORDERED: PIPER/TAZO/NS 3.375gm 3.375 GM/100 ML BAG ONE (07:59)
[2021-01-22] MEDS ORDERED: PIPER/TAZO/NS 3.375gm 3.375 GM/100 ML BAG IVPB SCH (09:00)
[2021-01-22] MEDS ORDERED: FAMOTIDINE 20 MG/2 ML VIAL IV SCH (09:00)
[2021-01-22] MEDS ORDERED: Ringers Lactate 1,000 ML IV ONE (09:54)
[2021-01-22] MEDS ORDERED: FENTANYL CITR 100 MCG/2 ML ONE (09:57)
[2021-01-22] MEDS ORDERED: KETOROLAC 30 MG/ML INJ ONE (09:57)
[2021-01-22] MEDS ORDERED: MIDAZOLAM HCL 2 MG/2 ML INJ ONE (09:57)
[2021-01-22] MEDS ORDERED: dexAMETHasone 10 MG/ML VIAL ONE (09:57)
[2021-01-22] MEDS ORDERED: propofoL 200 MG/20 ML VIAL IV ONE (09:57)
[2021-01-22] MEDS ORDERED: ROCURONIUM 50 MG/5 ML VIAL IV ONE (09:58)
[2021-01-22] MEDS ORDERED: LIDOCAINE 2% MPF 5 ML VIAL ONE (09:58)
[2021-01-22] MEDS ORDERED: BUPIVACAINE 0.5% PF 10 ML VIAL ONE (10:26)
--- NOTE | 2021-01-22 10:43 | HP ---
Date of Admission: 01/22/2021 Diagnoses: Acute appendicitis, acute abdominal pain. History Of Present Illness: This is the case of a 50-year-old patient who comes to us with 2-day his tory of periumbilical right lower quadrant tenderness associated with nausea and vomiting. Patient c marta this morning to the ER, and the ER physicians did the entire workup and found to have acute appen dicitis and a surgical evaluation was requested. He denies any dysuria, hematochezia, melena. Denie s any recent traveling out of the country. Denies any family member sick at home. He stated that ab out 2-3 weeks ago, he had a hemorrhoidal surgery. He never had any colonoscopy before, although he k nows he has to do it. Allergies: NONE. Medications: Dicyclomine. Past Medical History: Atrial fibrillation, SVT. Past Surgical History: Hemorrhoids. Social History: Denies any smoking. Denies any drinking. Family History: Noncontributory. Review of Systems: See H and P. Nausea, vomiting, acute abdominal pain. 10 points otherwise unremarkable. Physical Examination: General: Patient is awake and alert. HEENT: Pupils are equal and reactive. Anicteric. Neck: Supple. Chest: Clear. Abdomen: Right lower quadrant tenderness with Rovsing sign and psoas signs positive with localized p eritonitis. Extremities: Good capillary refill. Rectal: Deferred. Neuro: Cranial nerves 2 through 12 grossly within normal limits. Imaging: CAT scan of abdomen and pelvis shows acute appendicitis, dilatation of the appendix. Laboratory Data: Blood work shows a WBC count of 16.1 with hemoglobin of 16.7, potassium 3.9 and glu cose 102. Assessment: This is a 50-year-old patient with acute appendicitis, emergent laparoscopic, possible o pen appendectomy fully explained which include, but not limited to infection, bleeding, damage to adj acent structures, anesthesia complication, abscess, MS, and even . He also understands this may not relieve the symptoms. He might need more than one surgical intervention. He was emergently samayoa ked in OR. He understands importance of colonoscopies. JASWINDER/TERA Voice ID: [id number]
--- NOTE | 2021-01-22 11:24 | P.BOP ---
Preoperative diagnosis: acute appendicitis Postoperative diagnosis: same Primary procedure: Laparoscopic appendectomy Estimated blood loss: <10cc Specimen: misha Findings: as above, retrocecal appendix Anesthesia: General Complications: None Transferred to: Recovery Room Condition: Good
[2021-01-22] MEDS ORDERED: GLYCOPYRROLATE 0.2 MG/ML SYR ONE (11:41)
[2021-01-22] MEDS ORDERED: NEOSTIGMINE 1 MG/ML -5 ML ONE (11:41)
--- NOTE | 2021-01-22 11:43 | RAD REPORT ---
EXAM DESCRIPTION: CT - Abdomen Pelvis W Contrast - 01/22/2021 6:38 am CLINICAL HISTORY: ABD PAIN COMPARISON: None Available. TECHNIQUE: CT of the abdomen and pelvis performed following IV administration of iodinated contras t. This exam was performed according to our departmental dose-optimization program, which includes au tomated exposure control, adjustment of the mA and/or kV according to patient size and/or use of iter ative reconstruction technique. FINDINGS: Lung Bases: The visualized lung bases are clear. Bones: Mild multilevel endplate spondylosis. Abdomen: Liver: The liver has normal size and density. No intrahepatic biliary dilatation. Gallbladder: No calcified gallstones. Spleen, Pancreas, and Adrenal Glands: The spleen, pancreas, and adrenal glands are unremarkable. Kidneys: No hydronephrosis or obstructing calculus. Small left renal cyst. Vasculature: Aortoiliac atherosclerosis. IVC is unremarkable. The portal vein is patent. The proxim al visceral and renal arteries are patent. Stomach: The stomach and duodenum have normal course. Other: No free intraperitoneal air. No free fluid or lymphadenopathy. Tiny fat-containing umbilic al hernia. Pelvis: Bladder: Urinary bladder is unremarkable. Bowel: No dilated loops of large or small bowel. Appendix: The dilation of the appendix measuring 0.8 cm with mild periappendiceal inflammatory lee ge. No well-circumscribed periappendiceal fluid collection. Pelvis: Prostate is not enlarged. IMPRESSION: Findings compatible with acute uncomplicated appendicitis. Electronically signed by: Teddy Barcenas 01/22/2021 2:21 AM CDT Due to temporary technical issues with the PACS/Fluency reporting system, reports are being signed by the in house radiologists without review as a courtesy to insure prompt reporting. The interpreting radiologist is fully responsible for the content of the report.
[2021-01-22] MEDS ORDERED: PROMETHAZINE INJ 25 MG/ML AMP ONE (12:29)
[2021-01-22] MEDS ORDERED: HYDROCODONE/APAP 10/325 TAB ONE (13:22)
--- NOTE | 2021-01-22 14:10 | OP ---
Date of Procedure: 01/22/2021 Surgeon: Haider Villegas MD Preoperative Diagnosis: Acute appendicitis. Postoperative Diagnosis: Acute appendicitis. Procedure: Laparoscopic appendectomy. Findings: Retrocecal appendix. Anesthesia: General plus local. Specimen: Appendix. Complications: None. Estimated Blood Loss: Less than 10 mL. Indication: This is the case of a male, who comes to us with acute abdominal pain, diagnosed with ac [place] appendicitis. Fully explained the benefits, alternatives, and risks of laparoscopic possible ope n appendectomy, which include, but not limited to infection, bleeding, damage to adjacent structures, anesthesia complication, abscess, PA, and even . He also understands this may not relieve any symptoms. He might need more than one surgical intervention. He understood, signed a consent. Procedure In Detail: The patient was brought to the operating room, placed in supine position. Anes thesia was done without complication. Abdominal area was prepped and draped in usual sterile fashion . Marcaine 0.5% was injected for local anesthetic followed by sharp incision of the skin in the infr aumbilical region. Incision was carried down to fascia, which was opened under direct vision. Perit oneum was encountered, opened under direct vision. Vicryl #1 placed inside the fascia. Amairani troca r was carefully introduced. Pneumoperitoneum was obtained. I placed 2 more trocars, 5 mm each one o f them in suprapubic and left lower quadrant under direct visualization. After obtaining pneumoperit oneum once again, we proceeded to look at the area of the right lower quadrant. We have a partially retrocecal appendix, so we created a window in the base of the appendix and then we removed the piece of appendix and the adhesions with the help of LigaSure. Once we have adhesions all the way to make sure there was no bleeding, we proceeded to identify the base of appendix weak, which was spared fro m the inflammation, so we transected that with an Endo ANGUS 45 mm 3.5. Appendix removed from abdomina l cavity using EndoCatch through the umbilical incision. Area was fully inspected. No bowel leak. No bleeding. At that moment, I proceeded to remove the trocars under direct vision. Deflated pneumo peritoneum. Closed the fascia with #1 Vicryl. Irrigated subcutaneous tissue, closed that with 3-0 c hromic and skin with nichol. Sponge count and instrument counts correct. The patient tolerated the procedure well. The patient was sent to recovery in stable condition. JASWINDER/TERA Voice ID: [id number] Report ID: [id number]
[2021-01-22 14:11] VITALS: BP 136/77; TEMP 98; O2SAT 96
--- NOTE | 2021-01-22 14:13 | DS ---
The patient desire if possible to go home. We will see how he does when he wakes up from the anesthetic. If he is able to tolerate the pain with pain medications, then he can go home with t he condition. He takes his pain medication, his antibiotics. At home, he is going to be on full liq uid diet today and then tomorrow, advance to soft diet. No heavy lifting, no more than 20 pounds. F ollow up in my office in 1 week. Call for appointment at [phone]. Medications: Include Augmentin 875 p.o. q.12, Zofran 4 q.6 p.r.n. nausea, and Tylenol No.3 q.4 hours p.r.n. pain. JASWIDNER/TERA Voice ID: [id number] Report ID: [id number]
== END 2021-01-22 13:44 | disposition home or self-care (01) ==
LOC: ER 21:38 → UNDOADMOB 01-22 02:37 → ERHOLD 01-22 02:37 → DSO 01-22 12:00
PROVIDERS: ADMIT Surgery; ATTEND Surgery
PROC: 0DTJ4ZZ Resection of Appendix, Percutaneous Endoscopic Approach (ICD-10-PCS; principal; 2021-01-22 10:15)
DX: K35.80 Unspecified acute appendicitis (principal); I48.91 Unspecified atrial fibrillation; I47.1 Supraventricular tachycardia; Z20.822 Contact with and (suspected) exposure to COVID-19
CPT/HCPCS: 96365; 96361; 85025; 80048; 36415; 80076; 88304; 81003; 83690; 0240U; 74177; 96375; 99285; 44970; J2704; J2550; J2543 ×2; J2250; J3010; J1100; J2270 ×2; J2710; G0378 ×3; J7799; J7120; J7030 ×2; J2405 ×2; J0744

== ENCOUNTER 2021-03-16 07:26 | Day surgery (SDC) | payer OTHER ==
[2021-03-12 11:38] LABS: Absolute Lymphocytes (CBC) 1.4 K/uL (0.7-4.9); Basophils % 0.9 % (0-1.3); Hematocrit 47.8 % (39.6-49.0); Lymphocytes % 25.3 % (15.3-44.8); MPV 6.9 fL (7.6-11.3); RBC Red Blood Cell Count 5.73 M/uL (4.33-5.43)
[2021-03-12 11:41] LABS: Potassium 4.4 mmol/L (3.5-5.1)
[2021-03-16] MEDS ORDERED: Ringers Lactate 1,000 ML IV ONE (08:11)
[2021-03-16] MEDS ORDERED: propofoL 200 MG/20 ML VIAL IV ONE (08:50)
[2021-03-16] MEDS ORDERED: LIDOCAINE 1% MPF 5 ML VIAL ONE (08:50)
--- NOTE | 2021-03-16 09:00 | ENDO RPT ---
[address], [address] COLONOSCOPY PROCEDURE REPORT EXAM DATE: 03/16/2021 PATIENT NAME: Matthew Lee MR #: [id number] BIRTHDATE: 1970 ATTENDING: Kyrie Garcia M.D. STATUS: outpatient ROCK CUTTER: Nicki Hawley RN and Yennifer Guzman CST INDICATIONS: The patient is a 50 yr old Male here for a colonoscopy due to colon cancer screening PROCEDURE PERFORMED: Colonoscopy MEDICATIONS: Per Anesthesia. ESTIMATED BLOOD LOSS: None CONSENT: The patient understands the risks and benefits of the procedure and understands that these risks include, but are not limited to: sedation, allergic reaction, infection, perforation and/or bleeding. Alternative means of evaluation and treatment include, among others: physical exam, x-rays, and/or surgical intervention. The patient elects to proceed with this endoscopic procedure. DESCRIPTION OF PROCEDURE: During intra-op preparation period all mechanical medical equipment was checked for proper function. Hand hygiene and appropriate measures for infection prevention was taken. Procedure, possible complications, alternatives including, but not limited to possibility of bleeding, perforation, tear, infection, sepsis, need for surgery, need for blood transfusion, were explained to the patient. After the risks, benefits and alternatives of the procedure were thoroughly explained, Informed consent was verified, confirmed and timeout was successfully executed by the treatment team. The patient was placed in the left lateral position. A digital rectal exam was performed and revealed an enlarged prostate. After appropriate level of anesthesia, the scope was passed. The EC-[id number] ([id number]) endoscope was introduced through the anus and advanced to the cecum, which was identified by the ileocecal valve. The quality of the prep was fair. The instrument was then slowly withdrawn as the colon was fully examined. Scope withdrawal time was 18 minutes. COLON FINDINGS: A normal appearing cecum, ileocecal valve, and appendiceal orifice were identified. the ascending, transverse, descending, sigmoid colon, and rectum appeared unremarkable. Retroflexed views revealed no abnormalities. The scope was then completely withdrawn from the patient and the procedure terminated. ADVERSE EVENTS: There were no complications. IMPRESSIONS: A normal appearing cecum, ileocecal valve, and appendiceal orifice were identified. the ascending, transverse, descending, sigmoid colon, and rectum appeared unremarkable RECOMMENDATIONS: 1. fiber rich diet 2. follow-up: office 1 week(s) 3. increase dietary water RECALL: Return in 10 year(s) for Colonoscopy. Kyrie Garcia M.D. eSigned: Kyrie Garcia M.D. 03/16/2021 9:00 AM cc: Young Martinez M.D. CPT CODES: ICD9 CODES: PATIENT NAME: Matthew Lee MR#: [id number]
[2021-03-16 09:52] VITALS: O2SAT 96
[2021-03-16 09:53] VITALS: BP 98/66; TEMP 97.6
== END 2021-03-16 09:30 | disposition home or self-care (01) ==
LOC: OR 07:26
PROVIDERS: ATTEND Surgery
PROC: 0DJD8ZZ Inspection of Lower Intestinal Tract, Via Natural or Artificial Opening Endoscopic (ICD-10-PCS; principal; 2021-03-16 08:30)
DX: Z12.11 Encounter for screening for malignant neoplasm of colon (principal); Z20.822 Contact with and (suspected) exposure to COVID-19
CPT/HCPCS: 93005; 85025; 80048; 36415; 45378; U0003; J2704; J7120

== ENCOUNTER 2023-03-17 18:27 | Emergency (ER) | payer OTHER ==
[2023-03-17 19:26] LABS: Absolute Lymphocytes (CBC) 1.9 K/uL (0.7-4.9); Hematocrit 43.9 % (39.6-49.0); Lymphocytes % 24.2 % (15.3-44.8); MCV 82.5 fL (80-100); MPV 6.8 fL (7.6-11.3); Platelets 246 thou/uL (152-406); RBC Red Blood Cell Count 5.33 M/uL (4.33-5.43)
[2023-03-17 19:32] LABS: Protime INR 1.05
[2023-03-17] MEDS ORDERED: METOPROLOL TAR 50 MG TAB ONE (19:42)
[2023-03-17] MEDS ORDERED: NA CHLORIDE 0.9% 500 ML ONE (19:42)
[2023-03-17 20:05] LABS: Potassium 3.5 mEq/L (3.5-5.1)
[2023-03-17 20:06] LABS: Albumin 3.5 g/dL (3.4-5.0); Bilirubin Direct 0.2 mg/dL (0-0.2); Bilirubin Total 1.2 mg/dL (0.2-1.0); Magnesium 2.3 mg/dL (1.6-2.4); Protein, Total 7.2 g/dL (6.4-8.2); Thyroid Stimulating Hormone 0.832 uIU/mL (0.358-3.740); Troponin High Sensitivity 4.3 pg/mL (<58.9)
--- NOTE | 2023-03-17 20:10 | RAD REPORT ---
EXAM DESCRIPTION: [place] Single View03/17/2023 7:46 pm CLINICAL HISTORY: cough COMPARISON: 2020 FINDINGS: The lungs appear clear of acute infiltrate. The heart is normal size IMPRESSION: No acute abnormalities displayed
--- NOTE | 2023-03-17 20:19 | EDPHYS ---
Physician Documentation [facility] Name: Matthew Lee Age: 52 yrs Sex: Male : 1970 Arrival Date: 03/17/2023 Time: 18:27 Bed 14 Private MD: ED Physician Elver Lainez HPI: 03/17 20:12 This 52 yrs old Male presents to ER via Ambulatory with complaints of lyndon Palpitations. 20:12 The patient presents with a history of irregular heart beat, heart skipping beats. lyndon Context: The symptoms occur with light activity. Onset: The symptoms/episode began/occurred today. Duration: The patient or guardian reports multiple episodes, that have now resolved. Modifying factors: The symptoms are aggravated by nothing. The symptoms are alleviated by nothing. Associated signs and symptoms: The patient has no apparent associated signs or symptoms. Severity of symptoms: At their worst the symptoms were mild in the emergency department the symptoms are unchanged. The patient has experienced similar episodes in the past, several times. Historical: - Allergies: 18:47 KNDA; ph - PMHx: 18:47 Atrial Fib; ibs; SVT; ph - PSHx: 18:47 Hemorrhoids; ph - Immunization history:: Adult Immunizations unknown. - Social history:: Smoking status: Patient denies any tobacco usage or history of. ROS: 20:14 Constitutional: Negative for fever, chills, and weight loss, Eyes: Negative for injury, lyndon pain, redness, and discharge, ENT: Negative for injury, pain, and discharge, Neck: Negative for injury, pain, and swelling, Respiratory: Negative for shortness of breath, cough, wheezing, and pleuritic chest pain, Abdomen/GI: Negative for abdominal pain, nausea, vomiting, diarrhea, and constipation, Back: Negative for injury and pain, : Negative for injury, bleeding, discharge, and swelling, MS/Extremity: Negative for injury and deformity, Skin: Negative for injury, rash, and discoloration, Neuro: Negative for headache, weakness, numbness, tingling, and seizure, Psych: Negative for depression, anxiety, suicide ideation, homicidal ideation, and hallucinations, Allergy/Immunology: Negative for hives, rash, and allergies, Endocrine: Negative for neck swelling, polydipsia, polyuria, polyphagia, and marked weight changes, Hematologic/Lymphatic: Negative for swollen nodes, abnormal bleeding, and unusual bruising, 20:14 Cardiovascular: Positive for palpitations, Exam: 20:14 Constitutional: This is a well developed, well nourished patient who is awake, alert, lyndon and in no acute distress. Head/Face: Normocephalic, atraumatic. Eyes: Pupils equal round and reactive to light, extra-ocular motions intact. Lids and lashes normal. Conjunctiva and sclera are non-icteric and not injected. Cornea within normal limits. Periorbital areas with no swelling, redness, or edema. ENT: Nares patent. No nasal discharge, no septal abnormalities noted. Tympanic membranes are normal and external auditory canals are clear. Oropharynx with no redness, swelling, or masses, exudates, or evidence of obstruction, uvula midline. Mucous membranes moist. Neck: Trachea midline, no thyromegaly or masses palpated, and no cervical lymphadenopathy. Supple, full range of motion without nuchal rigidity, or vertebral point tenderness. No Meningismus. Chest/axilla: Normal chest wall appearance and motion. Nontender with no deformity. No lesions are appreciated. Cardiovascular: Regular rate and rhythm with a normal S1 and S2. No gallops, murmurs, or rubs. Normal PMI, no JVD. No pulse deficits. Respiratory: Lungs have equal breath sounds bilaterally, clear to auscultation and percussion. No rales, rhonchi or wheezes noted. No increased work of breathing, no retractions or nasal flaring. Abdomen/GI: Soft, non-tender, with normal bowel sounds. No distension or tympany. No guarding or rebound. No evidence of tenderness throughout. Back: No spinal tenderness. No costovertebral tenderness. Full range of motion. Male : Normal genitalia with no discharge or lesions. Skin: Warm, dry with normal turgor. Normal color with no rashes, no lesions, and no evidence of cellulitis. MS/ Extremity: Pulses equal, no cyanosis. Neurovascular intact. Full, normal range of motion. Neuro: Awake and alert, GCS 15, oriented to person, place, time, and situation. Cranial nerves II-XII grossly intact. Motor strength 5/5 in all extremities. Sensory grossly intact. Cerebellar exam normal. Normal gait. Psych: Awake, alert, with orientation to person, place and time. Behavior, mood, and affect are within normal limits. 20:14 Musculoskeletal/extremity: DVT Exam: No signs of deep vein thrombosis. no pain, no swelling, no tenderness, negative Homans' sign noted on exam, no appreciated bluish discoloration, no erythema, no increased warmth, Vital Signs: 18:44 BP 137 / 82; Pulse 104; Resp 18; Temp 97.9(TE); Pulse Ox 95% on R/A; Weight 102.06 kg; ph Height 6 ft. 4 in. ; 19:15 BP 118 / 72; Pulse 86; Resp 17 S; Pulse Ox 98% on R/A; ha1 19:48 BP 133 / 74; Pulse 87; Resp 17 S; Pulse Ox 98% on R/A; ha1 20:54 BP 119 / 86; Pulse 72; Resp 17 S; Pulse Ox 97% on R/A; ha1 18:44 Body Mass Index 27.39 (102.06 kg, 193.04 cm) ph MDM: 18:55 Patient medically screened. lyndon 20:15 MARCO A Risk Score: 1 - ASA use in past 7 days, Total Score = 1. Differential diagnosis: lyndon arrythmia, dehydration, stress disorder. Data reviewed: vital signs, nurses notes, lab test result(s), EKG, radiologic studies, plain films. Consideration of Admission/Observation Escalation of care including admission/observation considered. I considered the following discharge prescriptions or medication management in the emergency department Medications were administered in the Emergency Department. See MAR. Independent interpretation of the following test(s) in the Emergency Department EKG: See my EKG interpretation above. Test considered but Not performed: Ultrasound NO 2 D ECHO. Historians other than the Patient: PT WELL INFORMED. Care significantly affected by the following chronic conditions: A FIB, SVT. Counseling: I had a detailed discussion with the patient and/or guardian regarding the historical points, exam findings, and any diagnostic results supporting the discharge/admit diagnosis, lab results, radiology results, the need for outpatient follow up, for definitive care, a director of sales support. 03/17 19:00 Order name: Basic Metabolic Panel; Complete Time: 20:10 [facility] 03/17 19:00 Order name: CBC with Diff; Complete Time: 19:52 [facility] 03/17 19:00 Order name: LFT's; Complete Time: 20:10 [facility] 03/17 19:00 Order name: Magnesium; Complete Time: 20:10 [facility] 03/17 19:00 Order name: NT PRO-BNP; Complete Time: 20:10 [facility] 03/17 19:00 Order name: PT-INR; Complete Time: 19:52 [facility] 03/17 19:00 Order name: Troponin HS; Complete Time: 20:10 [facility] 03/17 19:00 Order name: TSH; Complete Time: 20:10 [facility] 03/17 19:01 Order name: Urinalysis w/ reflexes [facility] 03/17 19:00 Order name: XRAY Chest (1 view); Complete Time: 20:12 [facility] 03/17 18:35 Order name: EKG; Complete Time: 18:35 snw 03/17 18:35 Order name: EKG - Nurse/Tech; Complete Time: 19:23 [facility] 03/17 19:00 Order name: Cardiac monitoring; Complete Time: 19:22 [facility] 03/17 19:00 Order name: IV Saline Lock; Complete Time: 19:22 [facility] 03/17 19:00 Order name: Labs collected and sent; Complete Time: 19:22 [facility] 03/17 19:00 Order name: O2 Per Protocol; Complete Time: 19:22 [facility] 03/17 19:00 Order name: O2 Sat Monitoring; Complete Time: 19:22 [facility] Administered Medications: 19:45 Drug: NS 0.9% IV 500 ml IV at bolus once Route: IV; Rate: bolus; Site: right ha1 antecubital; 21:00 Follow up: Response: No adverse reaction; IV Status: Completed infusion; IV Intake: ha1 500ml 19:45 Drug: Metoprolol PO 50 mg PO once Route: PO; ha1 21:00 Follow up: Response: No adverse reaction ha1 20:51 Drug: Potassium PO Effervescent Tablet 25 mEq PO once; dissolve in 4 ounces of water or ha1 juice Route: PO; 21:00 Follow up: Response: No adverse reaction ha1 Disposition Summary: 03/17/23 20:18 Discharge Ordered Notes: Location: Home lyndon Problem: new lyndon Symptoms: have improved lyndon Condition: Stable lyndon Diagnosis - Palpitations lyndon - Paroxysmal atrial fibrillation - HISTROY OF SP ABLATION lyndon Followup: lyndon - With: Private Physician - When: 2 - 3 days - Reason: Recheck today's complaints, Continuance of care, Re-evaluation by your physician Followup: lyndon - With: Kevin Emmanuel MD - When: 2 - 3 days - Reason: Recheck today's complaints, Continuance of care, Re-evaluation by your physician Discharge Instructions: - Discharge Summary Sheet lyndon - Atrial Fibrillation lyndon - Palpitations lyndon - Aspirin and Your Heart lyndon - Palpitations, [id number] lyndon - Atrial Fibrillation, [id number] lyndon Forms: - Medication Reconciliation Form lyndon - Thank You Letter lyndon - Antibiotic Education lyndon - Prescription Opioid Use lyndon - Patient Portal Instructions lyndon - Leadership Thank You Letter [facility] Prescriptions: - metoprolol succinate 50 mg Oral Tablet, Extended Release 24 hr - take 1 tablet ORAL route once daily; 30 tablet; Refills: 0, Product Selection [facility] Permitted Signatures: Dispatcher [employer] EDMS Elver Lainez MD MD cha Waters, Shelly, VENEREAL DISEASE INVESTIGATOR-C VENEREAL DISEASE INVESTIGATOR-Joannaw Danyelle Saldana, RN RN Nimo Fink RN RN ha1
--- NOTE | 2023-03-17 20:19 | ER ---
Nurse's Notes [facility] Name: Matthew Lee Age: 52 yrs Sex: Male : 1970 Arrival Date: 03/17/2023 Time: 18:27 Bed 14 Private MD: Diagnosis: Palpitations;Paroxysmal atrial fibrillation-HISTROY OF SP ABLATION Presentation: 03/17 18:44 Chief complaint: Patient states: Palpitations that started earlier today, hx of cardiac ph ablation d/t a-fib, denies chest pain or SOB, had recent dental work done and is currently taking Amoxicillin. Coronavirus screen: Vaccine status: Patient reports receiving the 2nd dose of the covid vaccine. Ebola Screen: No symptoms or risks identified at this time. Initial Sepsis Screen: Does the patient meet any 2 criteria? No. Patient's initial sepsis screen is negative. Does the patient have a suspected source of infection? No. Patient's initial sepsis screen is negative. Risk Assessment: Do you want to hurt yourself or someone else? Patient reports no desire to harm self or others. Onset of symptoms was March 17, 2023. 18:44 Method Of Arrival: Ambulatory ph 18:44 Acuity: ALOK 3 ph Historical: - Allergies: 18:47 KNDA; ph - PMHx: 18:47 Atrial Fib; ibs; SVT; ph - PSHx: 18:47 Hemorrhoids; ph - Immunization history:: Adult Immunizations unknown. - Social history:: Smoking status: Patient denies any tobacco usage or history of. Screenin:00 [facility] ED Fall Risk Assessment (Adult) History of falling in the last 3 months, ha1 including since admission No falls in past 3 months (0 pts) Confusion or Disorientation No (0 pts) Intoxicated or Sedated No (0 pts) Impaired Gait No (0 pts) Mobility Assist Device Used No (0 pt) Score/Fall Risk Level 0 - 2 = Low Risk Oriented to surroundings, Maintained a safe environment, Educated pt \T\ family on fall prevention, incl call for assistance when getting out of bed. 20:58 Abuse screen: Denies threats or abuse. Denies injuries from another. Nutritional ha1 screening: No deficits noted. Tuberculosis screening: No symptoms or risk factors identified. Assessment: 19:15 General: Appears comfortable, Behavior is calm, cooperative. Pain: Denies pain. Neuro: ha1 Level of Consciousness is awake, alert, obeys commands, Oriented to person, place, time, situation. Cardiovascular: Reports palpitations, Denies chest pain, Heart tones S1 S2 present Capillary refill < 3 seconds Patient's skin is warm and dry. Rhythm is sinus rhythm. Respiratory: Airway is patent Respiratory effort is even, unlabored, Respiratory pattern is regular, symmetrical. 20:15 Reassessment: Patient and/or family updated on plan of care and expected duration. Pain ha1 level reassessed. Patient is alert, oriented x 3, equal unlabored respirations, skin warm/dry/pink. Vital Signs: 18:44 BP 137 / 82; Pulse 104; Resp 18; Temp 97.9(TE); Pulse Ox 95% on R/A; Weight 102.06 kg; ph Height 6 ft. 4 in. ; 19:15 BP 118 / 72; Pulse 86; Resp 17 S; Pulse Ox 98% on R/A; ha1 19:48 BP 133 / 74; Pulse 87; Resp 17 S; Pulse Ox 98% on R/A; ha1 20:54 BP 119 / 86; Pulse 72; Resp 17 S; Pulse Ox 97% on R/A; ha1 18:44 Body Mass Index 27.39 (102.06 kg, 193.04 cm) ph ED Course: 18:31 Patient arrived in ED. mr 18:47 Triage completed. ph 18:47 Arm band placed on Patient placed in an exam room. ph 18:55 Elver Lainez MD is Attending Physician. [facility] 19:00 Patient has correct armband on for positive identification. Placed in gown. Bed in low ha1 position. Call light in reach. Side rails up X 1. Adult w/ patient. 19:20 Inserted saline lock: 20 gauge in right antecubital area, using aseptic technique. ha1 Blood collected. 19:22 Nimo Fink, RN is Primary Nurse. ha1 19:22 Basic Metabolic Panel Sent. ha1 19:22 CBC with Diff Sent. ha1 19:22 LFT's Sent. ha1 19:22 Magnesium Sent. ha1 19:22 NT PRO-BNP Sent. ha1 19:22 PT-INR Sent. ha1 19:22 Troponin HS Sent. ha1 19:48 XRAY Chest (1 view) In Process Unspecified. EDMS 20:18 Kevin Emmanuel MD is Referral Physician. [facility] 20:58 No provider procedures requiring assistance completed. IV discontinued, intact, ha1 bleeding controlled, No redness/swelling at site. Pressure dressing applied. 20:59 Provided Education on: follow up with faculty neuropsychologist . ha1 Administered Medications: 19:45 Drug: NS 0.9% IV 500 ml IV at bolus once Route: IV; Rate: bolus; Site: right ha1 antecubital; 21:00 Follow up: Response: No adverse reaction; IV Status: Completed infusion; IV Intake: ha1 500ml 19:45 Drug: Metoprolol PO 50 mg PO once Route: PO; ha1 21:00 Follow up: Response: No adverse reaction ha1 20:51 Drug: Potassium PO Effervescent Tablet 25 mEq PO once; dissolve in 4 ounces of water or ha1 juice Route: PO; 21:00 Follow up: Response: No adverse reaction ha1 Medication: 20:58 VIS not applicable for this client. ha1 Intake: 21:00 IV: 500ml; Total: 500ml. ha1 Outcome: 20:18 Discharge ordered by . [facility] 20:58 Discharged to home ambulatory, with family, ha1 20:58 Condition: stable 20:58 Discharge instructions given to patient, family, Instructed on discharge instructions, follow up and referral plans. medication usage, Demonstrated understanding of instructions, follow-up care, medications, Prescriptions given X 1, 21:00 Patient left the ED. ha1 Signatures: Dispatcher [employer] EDOR Elver Lainez MD MD cha Rivera, Mary, Reg Reg mr Danyelle Saldana RN RN Nimo Batres RN RN ha1
[2023-03-17 20:22] LABS: Specific Gravity 1.019 (1.005-1.030); Urine Bacteria <20 /HPF (<20); Urine Bilirubin NEGATIVE (Negative); Urine Blood Negative (Negative); Urine Clarity Turbid (Clear); Urine Color Light-Yellow (Yellow); Urine Glucose NEGATIVE (Negative); Urine Mucus Slight /HPF (None Seen); Urine Protein TRACE (Negative); Urine RBC <5 /HPF (None Seen); Urine Urobilinogen Normal (Normal)
[2023-03-17] MEDS ORDERED: POTASSIUM 25 MEQ EFFERV TAB ONE (20:56)
[2023-03-17 21:16] VITALS: TEMP 97.9
[2023-03-17 21:28] VITALS: BP 119/86; O2SAT 97
--- NOTE | 2023-03-18 15:44 | EKG ---
Test Date: 2023-03-17 Test Time: 19:11:20 Irrigation System Operator: PILO MEASUREMENT RESULTS: Intervals: Rate: 85 SC: 152 QRSD: 78 QT: 362 QTc: 430 [place]: P: 74 SC: 152 QRS: 109 T: 53 INTERPRETIVE STATEMENTS: Normal sinus rhythm Normal ECG Compared to ECG 12/26/2020 09:38:54 Right-axis deviation no longer present Electronically Signed On 03-18-23 15:42:22 CDT by Kevin Emmanuel
== END 2023-03-17 21:00 | disposition home or self-care (01) ==
LOC: ER 18:27
DX: R00.2 Palpitations (principal); I48.0 Paroxysmal atrial fibrillation
CPT/HCPCS: 93005; 85025; 81001; 80048; 36415; 83735; 85610; 80076; 84443; 84484; 83880; 71045; 96360; 99284; J7040

== ENCOUNTER 2024-02-03 07:48 | Day surgery (SDC) | payer OTHER ==
[2024-02-01 13:47] LABS: Absolute Lymphocytes (CBC) 1.4 K/uL (0.7-4.9); Absolute Monocytes 0.4 K/uL (0.1-1.3); Absolute Neutrophil 4.4 K/uL (1.8-8.0); Basophils % 0.5 % (0-1.3); Eosinophils % 0.7 % (0-4.4); Hematocrit 46.8 % (39.6-49.0); Hemoglobin 15.6 g/dL (13.6-17.9); Lymphocytes % 22.3 % (15.3-44.8); MCH 28.5 pg (27.0-35.0); MCHC 33.3 g/dL (32.0-36.0); MCV 85.5 fL (80-100); MPV 7.4 fL (7.6-11.3); Neutrophils % 69.5 % (41.7-73.7); Platelets 239 thou/uL (152-406); RBC Red Blood Cell Count 5.48 M/uL (4.33-5.43); Red Cell Distribution Width 13.1 % (12.1-15.2)
[2024-02-01 14:01] LABS: Anion Gap 14.8 mEq/L (5.0-15.0); Potassium 3.8 mEq/L (3.5-5.1)
--- NOTE | 2024-02-02 16:24 | EKG ---
Test Date: 2024-02-01 Test Time: 13:31:57 Manager Graphic: ZAIDA MEASUREMENT RESULTS: Intervals: Rate: 76 SD: 142 QRSD: 78 QT: 386 QTc: 434 [place]: P: 63 SD: 142 QRS: 103 T: 52 INTERPRETIVE STATEMENTS: Normal sinus rhythm Rightward axis Borderline ECG Compared to ECG 03/17/2023 19:11:20 Right-axis deviation now present Electronically Signed On 02-02-24 16:21:43 CDT by Tate Dean
[2024-02-03] MEDS ORDERED: Ringers Lactate 1,000 ML IV ONE (08:03)
[2024-02-03 08:42] VITALS: TEMP 97.5
[2024-02-03] MEDS ORDERED: propofoL 200 MG/20 ML VIAL IV ONE ×2 (08:50→08:51)
[2024-02-03] MEDS ORDERED: LIDOCAINE 1% MPF 5 ML VIAL ONE (08:51)
[2024-02-03 09:34] VITALS: O2SAT 95
[2024-02-03 09:46] VITALS: BP 106/62
== END 2024-02-03 09:45 | disposition home or self-care (01) ==
LOC: OR 07:48
PROVIDERS: ATTEND Surgery
PROC: 0DB68ZX Excision of Stomach, Via Natural or Artificial Opening Endoscopic, Diagnostic (ICD-10-PCS; 2024-02-03)
PROC: 0DB98ZX Excision of Duodenum, Via Natural or Artificial Opening Endoscopic, Diagnostic (ICD-10-PCS; principal; 2024-02-03 09:00)
DX: K21.9 Gastro-esophageal reflux disease without esophagitis (principal); K29.81 Duodenitis with bleeding; K29.50 Unspecified chronic gastritis without bleeding
CPT/HCPCS: 93005; 85025; 80048; 36415; 88312; 88305; 43239; J2704; J2001; J7120

== ENCOUNTER 2024-06-04 09:38 | Emergency (ER) | payer OTHER ==
[2024-06-04 10:16] LABS: Absolute Eosinophils 0.1 K/uL (0-0.5); Absolute Lymphocytes (CBC) 1.5 K/uL (0.7-4.9); Absolute Monocytes 0.5 K/uL (0.1-1.3); Absolute Neutrophil 4.6 K/uL (1.8-8.0); Basophils % 0.5 % (0-1.3); Hematocrit 48.2 % (39.6-49.0); Hemoglobin 16.3 g/dL (13.6-17.9); Lymphocytes % 22.5 % (15.3-44.8); MCHC 33.8 g/dL (32.0-36.0); MCV 82.8 fL (80-100); Monocytes % 7.2 % (3.3-12.3); Neutrophils % 68.8 % (41.7-73.7); Nucleated Red Blood Cells % 0.3 % (0-0); Platelets 269 thou/uL (152-406); RBC Red Blood Cell Count 5.81 M/uL (4.33-5.43); Red Cell Distribution Width 13.1 % (12.1-15.2)
[2024-06-04 10:18] LABS: PT Prothrombin Time 11.9 SECONDS (9.4-12.5); Protime INR 1.13
[2024-06-04 10:31] LABS: Anion Gap 6.9 mEq/L (5.0-15.0); Potassium 3.9 mEq/L (3.5-5.1); Troponin High Sensitivity 3.4 pg/mL (<58.9)
--- NOTE | 2024-06-04 11:03 | RAD REPORT ---
EXAMINATION: CTA CHEST PE CLINICAL INDICATION: Chest pain TECHNIQUE: 100 cc 370 Isovue administered intravenously. This examination was performed according to an angiographic protocol with 3D post-processing. This involves 3D reconstructions, MIPs, volume rendered images and/or shaded surface rendering. One or more of the following dose reduction techniqu es were used: Automated exposure control, adjustment of the mA and/or kV according to patient size, and/or iterative reconstruction. Unless otherwise specified, incidental findings do not require dedic ated imaging follow-up. [id number]. COMPARISON: No prior exam. FINDINGS: A pulmonary embolus is not seen. An aortic aneurysm not noted. No pleural effusion. No pericardial effusion. Mild lingular atelectasis IMPRESSION: No evidence of a pulmonary embolism
--- NOTE | 2024-06-04 11:19 | RAD REPORT ---
Procedure: Chest Single View HISTORY: Chest pain COMPARISON: 2022 FINDINGS: Mild lingular atelectasis. The right lung appears clear. No significant pleural effusion noted. The heart is normal size. IMPRESSION: No acute abnormality is displayed.
--- NOTE | 2024-06-04 11:51 | ER ---
Nurse's Notes [facility] Name: Matthew Lee Age: 53 yrs Sex: Male : 1970 Arrival Date: 06/04/2024 Time: 09:38 Bed 5 Private MD: Diagnosis: Chest pain, unspecified;Atelectasis Presentation: 06/04 09:53 Chief complaint: Patient states: chest pain since yesterday , feels sharp, worse when iw taking a deep breath. Coronavirus screen: At this time, the client does not indicate any symptoms associated with coronavirus-19. Ebola Screen: No symptoms or risks identified at this time. Initial Sepsis Screen: Does the patient meet any 2 criteria? No. Patient's initial sepsis screen is negative. Does the patient have a suspected source of infection? No. Patient's initial sepsis screen is negative. Risk Assessment: Do you want to hurt yourself or someone else? Patient reports no desire to harm self or others. Onset of symptoms was June 03, 2024. 09:53 Method Of Arrival: Ambulatory iw 09:53 Acuity: ALOK 3 iw Historical: - Allergies: 09:55 NKDA; iw - Home Meds: 09:55 metoprolol succinate 25 mg oral Tablet, Extended Release 24 hr daily [Active]; iw rabeprazole 20 mg oral tablet, delayed release (enteric coated) daily [Active]; aspirin 81 mg Oral capsule daily [Active]; - PMHx: 09:55 Atrial Fib; ibs; SVT; iw - PSHx: 09:55 Hemorrhoids; Appendectomy; cardiac ablation; iw - Immunization history:: Adult Immunizations not up to date. - Infectious Disease History:: Denies. - Family history:: not pertinent. - Social history:: Smoking status: Patient/guardian denies using tobacco, the patient reports quitting approximately 5 years ago. - Hospitalizations: : No recent hospitalization is reported. Screenin:57 [facility] ED Fall Risk Assessment (Adult) History of falling in the last 3 months, kc6 including since admission No falls in past 3 months (0 pts) Confusion or Disorientation No (0 pts) Intoxicated or Sedated No (0 pts) Impaired Gait No (0 pts) Mobility Assist Device Used No (0 pt) Altered Elimination No (0 pt) Score/Fall Risk Level 0 - 2 = Low Risk Oriented to surroundings, Maintained a safe environment. Abuse screen: Denies threats or abuse. Denies injuries from another. Nutritional screening: No deficits noted. Tuberculosis screening: No symptoms or risk factors identified. Assessment: 09:58 General: Appears in no apparent distress. comfortable, well groomed, well developed, kc6 Behavior is calm, cooperative, appropriate for age. Pain: Complains of pain in chest Pain does not radiate. Pain began 2-3 days ago. Is intermittent. Neuro: Level of Consciousness is awake, alert, obeys commands, Oriented to person, place, time, situation, Appropriate for age. Cardiovascular: Reports chest pain, Heart tones S1 S2 present Capillary refill < 3 seconds Rhythm is sinus rhythm. Respiratory: Airway is patent Trachea midline Respiratory effort is even, unlabored, Respiratory pattern is regular, symmetrical. GI: No signs and/or symptoms were reported involving the gastrointestinal system. : No signs and/or symptoms were reported regarding the genitourinary system. EENT: No signs and/or symptoms were reported regarding the EENT system. Derm: No signs and/or symptoms reported regarding the dermatologic system. Skin is intact, is healthy with good turgor, Skin is pink, warm \T\ dry. Musculoskeletal: No signs and/or symptoms reported regarding the musculoskeletal system. Circulation, motion, and sensation intact. Range of motion: intact in all extremities. 11:13 Reassessment: Patient appears in no apparent distress at this time. No changes from kc6 previously documented assessment. Patient and/or family updated on plan of care and expected duration. Pain level reassessed. Patient is alert, oriented x 3, equal unlabored respirations, skin warm/dry/pink. 12:22 Reassessment: Patient appears in no apparent distress at this time. No changes from kc6 previously documented assessment. Patient and/or family updated on plan of care and expected duration. Pain level reassessed. Patient is alert, oriented x 3, equal unlabored respirations, skin warm/dry/pink. Vital Signs: 09:53 BP 124 / 82; Pulse 85; Resp 18; Temp 97.8; Pulse Ox 98% on R/A; Weight 104.33 kg; iw Height 6 ft. 4 in. ; Pain 7/10; 11:14 BP 115 / 76; Pulse 76; Resp 16 S; Pulse Ox 98% on R/A; kc6 09:53 Body Mass Index 28.00 (104.33 kg, 193.04 cm) iw 09:53 Pain Scale: Adult ED Course: 09:40 Patient arrived in ED. ra3 09:40 Castillo Suazo MD is Attending Physician. rn 09:44 Alyx Connelly RN is Primary Nurse. kc6 09:55 Triage completed. iw 09:55 Arm band placed on. iw 09:57 Patient has correct armband on for positive identification. Bed in low position. Call kc6 light in reach. Side rails up X 1. Adult w/ patient. monitoring coordinator on. Pulse ox on. NIBP on. Door closed. Noise minimized. Lights dimmed. Pillow given. 09:57 Initial lab(s) drawn, by me, sent to lab. EKG done, by ED staff, reviewed by Castillo Suazo MD. Inserted saline lock: 18 gauge in right antecubital area, using aseptic technique. Blood collected. Flushed with 10 mL NS. Patient maintains SpO2 saturation greater than 95% on room air. 10:34 XRAY Chest (1 view) In Process Unspecified. EDMS 10:42 CT Chest For PE Angio In Process Unspecified. EDMS 12:22 No provider procedures requiring assistance completed. IV discontinued, intact, kc6 bleeding controlled, No redness/swelling at site. Pressure dressing applied. Administered Medications: 11:59 Drug: Ketorolac IVP 15 mg IVP once Route: IVP; Site: right antecubital; kc6 12:21 Follow up: Response: No adverse reaction kc6 Medication: 12:22 VIS not applicable for this client. kc6 Outcome: 11:50 Discharge ordered by . rn 12:22 Discharged to home ambulatory, with significant other, kc6 12:22 Condition: good 12:22 Discharge instructions given to patient, significant other, Instructed on discharge instructions, follow up and referral plans. Demonstrated understanding of instructions, follow-up care, 12:22 Patient left the ED. kc6 Signatures: Dispatcher [employer] Stacy Rajput RN RN Castillo Suazo MD MD rn Campbell, Kaitlyn, RN RN kc Ellen Rahman ra3 Corrections: (The following items were deleted from the chart) 09:57 09:55 Allergies: KNDA; iw iw
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
[2024-06-04] MEDS ORDERED: KETOROLAC 30 MG/ML INJ ONE (11:54)
[2024-06-05 16:46] VITALS: BP 115/76; TEMP 97.8; O2SAT 98
--- NOTE | 2024-06-07 12:07 | EKG ---
Test Date: 2024-06-04 Test Time: 09:48:36 Water Hauler: DANIELLE MEASUREMENT RESULTS: Intervals: Rate: 80 MI: 150 QRSD: 76 QT: 378 QTc: 435 [place]: P: 55 MI: 150 QRS: 99 T: 46 INTERPRETIVE STATEMENTS: Normal sinus rhythm Rightward axis Borderline ECG Compared to ECG 02/01/2024 13:31:57 No significant changes Electronically Signed On 06-07-24 12:07:11 PUBLIC RELATIONS ACCOUNT SUPERVISOR by Tate Dean
== END 2024-06-04 12:22 | disposition home or self-care (01) ==
LOC: ER 09:38
DX: R07.89 Other chest pain (principal); J98.11 Atelectasis; I48.91 Unspecified atrial fibrillation; Z79.82 Long term (current) use of aspirin
CPT/HCPCS: 93005; 85025; 80048; 36415; 85610; 84484; 83880; 71275; 71045; 96374; 99285; Q9967